=== PATIENT | male | born 1935 | race Caucasian/White ===

== ENCOUNTER 2017-05-29 11:02 | Inpatient (IN) | payer MEDICARE, BC ==
[~2017-05-29] VITALS: Ht 193 cm; Wt 95.0 kg
--- NOTE | ~2017-05-29 | HP ---
PATIENT'S NAME: CESILIA URBINA [facility] AGE: 81 Y [address] ROOM: [place] [address] LOCATION: [facility] ADMIT DATE: 05/29/2017 History & Physical DISCHARGE DATE: FAMILY PHYSICIAN: Roberto Verdugo MD ATTENDING PHYSICIAN: FABIANO REINOSO DATE OF SERVICE: CHIEF COMPLAINT: Left-sided weakness. HISTORY OF PRESENT ILLNESS: An 81-year-old gentleman with a past medical history of TIAs, hypertension, questionable history of coronary artery disease without any intervention, and history of osteoarthritis, as well as rheumatoid arthritis who presented to the emergency department when he noticed left-sided weakness which started about 10:30 a.m. this morning. also noted dysarthria as well as drooping of the left side of the facial corner. On my encounter, he is saying that he is weak on the left side as well as the left leg. He is wearing the brace on the left side which is secondary to surgery for the osteomyelitis in the past. He denied any headache or any trouble with the eyes at this point, but he said he is having trouble speaking. He denied any trouble swallowing. On further inquiry, he denied any dizziness, any chest pain, palpitations, shortness of breath, abdominal pain, burning on urination, constipation, or diarrhea. REVIEW OF SYSTEMS: All other systems reviewed and were negative except what is mentioned in the HPI. ALLERGIES: NO KNOWN DRUG ALLERGIES. PAST MEDICAL HISTORY: Osteoarthritis; rheumatoid arthritis; TIA; history of hypertension; coronary artery disease; and history of osteomyelitis of the left foot, status post surgery, on long-term antibiotics. SOCIAL HISTORY: Quit smoking 20 years ago. FAMILY HISTORY: Reviewed and was unrelated to the current medical problem. MEDICATIONS: Being reconciled right now. PATIENT'S NAME: CESILIA URBINA [facility] AGE: 81 Y [address] ROOM: [place] [address] LOCATION: [facility] ADMIT DATE: 05/29/2017 History & Physical DISCHARGE DATE: FAMILY PHYSICIAN: Roberto Verdugo MD ATTENDING PHYSICIAN: FABIANO REINOSO PHYSICAL EXAMINATION: VITAL SIGNS: Blood pressure 210/100, pulse 62, saturating 95% on room air, and respiratory rate of 16. GENERAL: No acute distress. Alert and oriented x3. HEENT: Head: Atraumatic, normocephalic. Eyes: Nonicteric. No pallor. Oropharynx: Dry mucous membranes. CARDIOVASCULAR: S1 and S2. No murmurs, gallops, or rubs. LUNGS: Clear to auscultation bilaterally. ABDOMEN: Soft, nontender, and nondistended. Bowel sounds present. EXTREMITIES: Left extremity swollen, +2 pitting edema. Right lower extremity: No clubbing, cyanosis, or edema. PSYCHIATRIC: Normal affect, mood, and speech. NEUROLOGIC: Left upper extremity power 0/5, left lower extremity power 0/5. Drooping of the left corner of the face noted. No other gross neurological findings noted. MUSCULOSKELETAL: No muscle tenderness or joint swelling noted. ENDOCRINE: No thyromegaly or myxedema noted. LYMPHATIC: No lymphangitis or lymphadenopathy noted. LABORATORY AND DIAGNOSTIC DATA: CT scan was done in the emergency department which was not significant for any acute intracranial changes. EKG was done which showed sinus bradycardia without any acute ST-T wave changes. Initial lab work including CBC, CMP, and troponin levels were negative for any impressive findings. ASSESSMENT: 1. Acute stroke. 2. History of osteoarthritis. 3. Rheumatoid arthritis. 4. History of transient ischemic attack. 5. Hypertensive urgency. PLAN: We are going to admit this patient to the ICU. Neurology has evaluated the patient, and given the circumstances and high NIH score plus he does not have any contraindication to the thrombolytics, he has been given tPA per Neurology recommendation. He will be admitted to the ICU. After the administration of tPA, we will continue to monitor his neurologic checks every hour to see for any deterioration. MRI and CT of the head and neck angiogram will be ordered. Echocardiography 2D with a bubble study will be done as well. He does have significant swelling of the left side, and we will make sure he does not have any DVT there. He is going to be n.p.o. until bedside swallow testing is done. We are going to follow the post tPA protocol. I had a discussion with the and the patient himself, and he wishes to be full code. We will PATIENT'S NAME: CESILIA URBINA [facility] AGE: 81 Y [address] ROOM: [place] [id number] LOCATION: GICU ADMIT DATE: 05/29/2017 History & Physical DISCHARGE DATE: FAMILY PHYSICIAN: Roberto Verdugo MD ATTENDING PHYSICIAN: FABIANO REINOSO decide about the DVT prophylaxis tomorrow, SCDs for today. FABIANO REINOSO MD ANABELL/modl /[id number] D: [id number] T: [id number] HISTORY & PHYSICAL
--- NOTE | ~2017-05-29 | CON ---
PATIENT'S NAME: CESILIA URBINA [facility] AGE: 81 Y [address] ROOM: [place] [address] LOCATION: GICU ADMIT DATE: 05/29/2017 Consultation DISCHARGE DATE: FAMILY PHYSICIAN: Roberto Verdugo MD ATTENDING PHYSICIAN: FABIANO KAISER REFERRING PHYSICIAN: Graham Pugh MD Consult for Dr. Kaiser. SUBJECTIVE: This pleasant 81-year-old gentleman is referred for rehab/GIRP evaluation, admitted on 05/29/2017, with left-sided weakness, some slurring of speech of sudden onset, however, he does have slurring of speech on and off. He had surgery on his tongue and partial excision per history. However, at this time notices that his slurring was a little bit more. She immediately took him to the hospital and was evaluated and he was within the window of tPA. He is with past history as following: Hypertension, questionable coronary artery disease. Rheumatoid arthritis with weakness, resolved, before of the left side about 2 years ago secondary to TIA. History of partial excision of jaw and tongue on the left side with some slurring. He denied any shortness of breath. No dizziness. No headache. No double vision. He denied any palpitation. No syncope. No abdominal pain. No chills. No burning or micturition at this time. He seems to be comfortable, alert and oriented x3. VITAL SIGNS: Blood pressure 134/66, temperature 98.0, pulse 106, and respiration rate 18. He is 6 feet tall and weighs 94.2 kg. Apart from slight slurring, there is no facial droop at the present time. No visual cut and/or neglect. No double vision. He is at the present time, able to move bilateral upper and lower extremity. Muscle strength throughout is about 4- to 4/5. He has good bowel and bladder control. Deep tendon reflexes present and equal throughout 1+. PATIENT'S NAME: CESILIA URBINA [facility] AGE: 81 Y [address] ROOM: [place] [address] LOCATION: GICU ADMIT DATE: 05/29/2017 Consultation DISCHARGE DATE: FAMILY PHYSICIAN: Roberto Verdugo MD ATTENDING PHYSICIAN: FABIANO KAISER He is on the following medications. 1. Lipitor. 2. Apresoline. 3. Tylenol. 4. NaCl 0.9%. 5. Labetalol. ASSESSMENT AND PLAN: I feel that he is doing well. He should not have any food until speech therapy will evaluate him. Please see the orders. I will start him on PT, OT, and speech and when okayed by the hospitalist, we will continue to do so. I feel that this gentleman has done well. I would advise that he does not drive and/or operate any mechanical device until he is evaluated. I will start him as I mentioned on PT, OT, and speech. He is at risk of falling and should be assisted at all time. I will watch him alongside with you, however, if he is discharged, I would like to see him in 2 weeks in my office. Please see the orders. I did explain everything and answered all the questions to his and himself. They verbalized understanding and agreement. I will be following alongside with you. Thank you for this referral. MD TERESO FOOTE/ahsan /[id number] d: 05/30/17 1216 t: 05/31/17 0834, CONSULTATION REPORT
--- NOTE | ~2017-05-29 | ENPV ---
Vascular Lower Extremities DVT Study Procedure Demographics Patient Name CESILIA URBINA Date of Study 05/29/2017 Patient Number [id number] Gender Male Date of 1935 Age 81 Visit Number [id number] Height Accession Number [id number] Weight Room Number [id number] BSA BMI Referring Interpreting Yosi Romero MD Physician Physician Physician Ordering Awilda Alonzo Title I Director Physician Ug Designer Denny Loyd BS, RT Aisha Hernandez RVT, RDCS Conclusions Summary No evidence of deep vein thrombosis or superficial thrombophlebitis in the left lower extremity . Left calf veins difficult to evaluate. Procedure Type of Study: Veins:Lower Extremities DVT Study, Lower Extremity Left. Indications for Study:Swelling of Limb. Patient Status:Routine. Study Location:Inpatient Portable. Technical Quality:Adequate visualization. Velocities are measured in cm/s ; Diameters are measured in cm Right Lower Extremities DVT Study Measurements Right 2D and Doppler Measurements + + + + +------+------+ + !Location !Visualized!Compressibility!Thrombosis!Signal!Reflux!Reflux ! ! ! ! ! ! ! !(sec) ! + + + + +------+------+ + !GSV Thigh !Yes !Yes !None !Phasic! ! ! + + + + +------+------+ + !Common !Yes !Yes !None !Phasic! ! ! !Femoral ! ! ! ! ! ! ! + + + + +------+------+ + Left Lower Extremities DVT Study Measurements Left 2D and Doppler Measurements + + + + +------+------+ + !Location !Visualized!Compressibility!Thrombosis!Signal!Reflux!Reflux ! ! ! ! ! ! ! !(sec) ! + + + + +------+------+ + !GSV Thigh !Yes !Yes !None !Phasic!No ! ! + + + + +------+------+ + !Common !Yes !Yes !None !Phasic!No ! ! !Femoral ! ! ! ! ! ! ! + + + + +------+------+ + !Prox !Yes !Yes !None !Phasic!No ! ! !Femoral ! ! ! ! ! ! ! + + + + +------+------+ + !Mid Femoral!Yes !Yes !None !Phasic!No ! ! + + + + +------+------+ + !Dist !Yes !Yes !None !Phasic!No ! ! !Femoral ! ! ! ! ! ! ! + + + + +------+------+ + !Popliteal !Yes !Yes !None !Phasic!No ! ! + + + + +------+------+ + !Gastroc !Yes !Yes !None !Phasic!No ! ! + + + + +------+------+ + !PTV !Yes !Yes !None !Phasic!No ! ! + + + + +------+------+ + !Peroneal !Yes !Yes !None !Phasic!No ! ! + + + + +------+------+ + Signature dtt: cheryl: 05/29/17 1551 Physician Self Edit
--- NOTE | ~2017-05-29 | DS ---
PATIENT'S NAME: CESILIA URBINA [facility] AGE: 81 Y [address] ROOM: [id number] [place] [id number] LOCATION: GICU ADMIT DATE: 05/29/2017 Discharge Summary DISCHARGE DATE: 06/02/2017 FAMILY PHYSICIAN: Roberto Verdugo MD ATTENDING PHYSICIAN: Eddie Kaiser Discharged to [facility] Inpatient Rehab. REASON FOR ADMISSION: Facial droop. ADMISSION PRINCIPAL DIAGNOSIS: Multifocal right-sided ischemic cerebrovascular accident. SECONDARY DIAGNOSES: 1. Rheumatoid arthritis, on prednisone. 2. Essential hypertension. 3. Acute hypoxic respiratory failure with mild oxygen requirements. 4. BPH. 5. History of frequent transient ischemic attacks. 6. Questionable history of coronary artery disease. No prior intervention. 7. History of osteoarthritis. 8. History of osteomyelitis requiring fusion of left ankle with chronic brace. PENDING LABS AND TESTS AT TIME OF DISCHARGE: Will include a 30-day cardiac event monitor to rule out atrial fibrillation as contributing to stroke. HOSPITAL COURSE: This is a very pleasant 81-year-old male with history as noted above who presented after developing sudden onset worsening of baseline mild facial droop on the left as well as worsening dysarthria and flaccid left arm and leg. 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 Upon initial arrival, CT scan did not show acute bleed and patient was felt to be a good candidate for tPA which was given approximately an hour and 5 minutes after initiation of symptoms. The next day, patient had regained all of his strength and had returned to baseline degree of deficits with regard to dysarthria. MRI subsequently performed did show small areas of scattered restricted diffusion in the right subcortical regions as well as an area of high cortical involvement. Due to these results, a cardioembolic source was felt highly likely. The patient was evaluated during his stay on telemetry without any significant rhythm events. Lower extremity Doppler was negative for DVT. CT angiography showed an unremarkable [place] of [place] as well as mild to moderate stenosis involving proximal left internal carotid measuring 30% to 40%. During the subsequent hospital stay, the patient did well, largely an uneventful stay though he did require 1 to 2 L of oxygen PATIENT'S NAME: CESILIA URBINA [facility] AGE: 81 Y [address] ROOM: [id number] [place], [place] [address] LOCATION: GICU ADMIT DATE: 05/29/2017 Discharge Summary DISCHARGE DATE: 06/02/2017 FAMILY PHYSICIAN: Roberto Verdugo MD ATTENDING PHYSICIAN: Eddie Kaiser which was new from prior baseline. No evidence of infectious etiology nor volume overload was appreciated on imaging or on exam. This will be maintained upon discharge and can be weaned as activity tolerates to maintain saturations greater than 90. The patient will also be discharged with a 30- day cardiac event monitor as there were no evidence of atrial fibrillation during his 4-day stay; however, distribution of stroke does favor cardioembolic source. CONSULTANTS: Neurology, Dr. Pugh. MEDICATIONS AND PERTINENT CHANGES: The patient did have amlodipine 10 mg started during the stay for hypertension though this was borderline low following 48 hours after tPA. So, this was occasionally held. Also, was started on high-intensity statin. CONDITION: Last vital signs just prior to discharge: Temp 98, pulse 85 in sinus, respirations 16, blood pressure 132/76, saturating 91% on 2 L. For exam date of discharge, please see progress note. DISPOSITION: The patient was instructed on a mechanical soft diet per Speech Therapy recommendations upon discharge. ACTIVITY: To be as tolerated. FOLLOWUP: Will have follow up regarding his cardiac event monitor and with PCP following [facility] discharge especially if ongoing oxygen is required. Time spent on date of discharge including direct patient care and coordination of discharge activities was 40 minutes. MD GREGORIO ROME/modl /[id number] d: 06/03/17 0203 t: 06/03/17 1533, DISCHARGE SUMMARY
--- NOTE | ~2017-05-29 | CON ---
PATIENT'S NAME: CESILIA URBINA [facility] AGE: 81 Y [address] ROOM: [id number] [place], [place] [address] LOCATION: GICU ADMIT DATE: 05/29/2017 Consultation DISCHARGE DATE: FAMILY PHYSICIAN: Roberto Verdugo MD ATTENDING PHYSICIAN: FABIANO KAISER DATE OF CONSULTATION: 05/29/2017 REFERRING PHYSICIAN: Graham Pugh MD CHIEF COMPLAINT: The patient was seen in neurologic consultation on 05/29/2017 and followed up on 05/31/2017. HISTORY OF PRESENT ILLNESS: Mr. Urbina is an 81-year-old male patient who at 10:30 a.m. according to his developed sudden onset of worsening of his baseline mild facial droop to have extreme on his left as well as having much more slurring of his speech. He was also flaccid on his left arm and left leg. Upon his arrival into the emergency room, a stroke code was called and he was assessed by Dr. Adrianna Fischer for an NIH stroke scale and after a CAT scan of the brain, which was not showing any acute stroke or bleed, I evaluated the patient and agreed the patient would be an active candidate for tPA. He just received tPA at approximately 11:35. During the course of the day, the patient did very well. He had progressive improvement of his power in the left upper extremity as well as the left lower extremity. By the morning of the next day, the patient showed full power return to his left side, also his facial droop had resolved and he was not talking with any significant slur. At no time did the patient have any cortical neglect of his right hemibody, he identified the right and left discrimination, 2-point discrimination was always intact. He had no problems with language, answered questions, and followed all commands properly. An MRI was performed on the day after the patient received tPA and there was evidence of diffusion-weighted imaging findings for small areas of scattered restriction diffusion in the right subcortical regions of the brain as well as the one area that was a bit high cortical. I discussed with the patient that the process of this stroke may likely be related to atrial fibrillation. Thus his stay here would require a close monitoring of his rhythm to look for any evidence of atrial arrhythmia. During the course of his stay here on 05/31, he was doing very well. He is walking around and felt well. His family members were present. They were happy with the return to his baseline motor power. It is difficult to see if the patient had any junctional rhythm or atrial arrhythmia, but constantly, I was checking with telemetry and appears he has remained in normal sinus rhythm. PRIOR MEDICAL HISTORY: History of hypertension, coronary artery disease, history also of rheumatoid PATIENT'S NAME: CESILIA URBINA [facility] AGE: 81 Y [address] ROOM: [id number] [place], [place] [address] LOCATION: [facility] ADMIT DATE: 05/29/2017 Consultation DISCHARGE DATE: FAMILY PHYSICIAN: Roberto Verdugo MD ATTENDING PHYSICIAN: FABIANO KAISER arthritis, possible TIA involving his left side about 2 years ago. History of osteomyelitis of the left foot status post surgery on the foot. 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 He has some very mild slurring from the surgery. He did come in with a left foot brace. SOCIAL HISTORY: He is for greater than 45 years. He does not smoke presently, but smoked 20 years ago. He does not drink any alcohol. FAMILY HISTORY: Reviewed with the patient, but not significant in this patient's case. REVIEW OF SYSTEMS: The patient is doing very well. He has full resumption of his motor power. He presented with acute stroke symptoms on 05/30/2017 and received tPA promptly in the emergency room. He made an excellent recovery with the use of the tPA and expectedly there was evidence for some stroke findings with diffusion- weighted imaging showing some prolongation in the right hemisphere. This appeared to be some scattered emboli type foci in the subcortical regions of the brain and even one into the high cortical region possibly consistent with embolic stroke. He denies any chest pain or shortness of breath. He feels well. He has no headache. He has no problems with speech or language. Rest of review of systems is within normal limits. PHYSICAL EXAMINATION: GENERAL: The patient is alert and oriented. Multiple family members in the room. They are speaking to them and is having a general good time. VITAL SIGNS: Show a pulse of 68 to 78 and regular. No evidence of irregularly irregular rhythm. Occasionally, he has an extra beat that seems to fall on the T-wave. The QRS complex does seem to be followed by T wave. P waves appear to be wide consistent with P mitrale. Pressure 180/95, and temperature is afebrile. CRANIAL NERVES: Pupils are equal and reactive to light and accommodation. Extraocular muscles intact. There is a subtle facial droop on the left. This is a result of the patient's prior surgery of the face due to cancer. There is normal facial sensation V1 through V3. Neck is supple on flexion and extension. Left upper extremity power is now grade 5/5, symmetric to the right. Rapid alternating hand movements are normal. He displays no evidence of any pronator drift. Mjpgyo-jz-mmbz testing is normal. His left lower extremity power: He gives me 4+/5 power on dorsiflexion of the foot, but this is likely due to weakness from a prior foot injury. Normal sensation to light touch. No PATIENT'S NAME: CESILIA URBINA [facility] AGE: 81 Y [address] ROOM: [place] [address] LOCATION: [facility] ADMIT DATE: 05/29/2017 Consultation DISCHARGE DATE: FAMILY PHYSICIAN: Roberto Verdugo MD ATTENDING PHYSICIAN: FABIANO KAISER cortical neglect. The patient is able to stand up with normal base stance. His gait is normal narrow base. Negative Romberg. IMPRESSION: The patient received tPA on 05/30/2017 in association with him coming in with a dense left hemiparesis. He was found to have a small area of stroke in the subcortical and high cortical regions of his brain, but the sequela of this stroke is really resolved. It is likely due to the clot busting effect of tPA and some residual prolongation on DWI that is often seen even if the patient has made a full recovery. We will look very closely for any evidence of atrial arrhythmia. This type of presentation of multi areas of prolongation is often seen in cardioembolic strokes. He does have what appears to be P mitrale, possibly left atrial enlargement, set him up for more of a risk for atrial fibrillation; however, he does show normal sinus rhythm. Therefore, he should have a cardiac event monitor after discharge for least 1 month to rule out any evidence of paroxysmal atrial fibrillation. For now, the patient will not be placed on anticoagulation as any evidence for atrial fibrillation is lacking presently. Aspirin as well as Lipitor has been started on this patient. He would likely receive physical therapy, possibly as an outpatient basis to return to this hospital during the course of the week. Case has been discussed fully with Dr. Kaiser. MD BLESSING LOPEZ/ahsan /[id number] d: 06/01/172 t: 06/30/17 1552, CONSULTATION REPORT
--- NOTE | ~2017-05-29 | ECHO ---
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 The estimated left ventricular ejection fraction is 50-55%% with normal WM and internal dimension. Moderate to severe concentric left ventricular hypertrophy. The aortic valve is mildly sclerotic. Trivial tricuspid regurgitation by color Doppler. Procedure Type of Study TTE procedure:2D Echocardiogram. Procedure Date Date: 05/30/2017 Start: 11:37 AM Study Location: Inpatient Portable Technical Quality: Limited visualization due to patient immobility. Indications:CVA. Appropriate Use Criteria: 9 Patient Status: Routine HR: 89 bpm BP: 173/96 mmHg M-Mode/2D Measurements LV Diastolic Dimension: 5.02 cm LV Systolic Dimension: 4.38 cm LV Septum Diastolic: 1.49 cm LV PW Diastolic: 1.73 cm AO Root Dimension: 3.1 cm Cardiac Output: 3.08 l/min AV Cusp Separation: 2.1 cm LA Dimension: 2.7 cm LVOT: 2.1 cm LVOT VTI: 10 cm TAPSE: 2.46 cm LV Stroke volume: 34.62 ml TDI-S': 15 cm/s Doppler Measurements AV Peak Velocity: 0.84 m/s MV Peak E-Wave: 1 m/s AV Peak Gradient: 2.79 mmHg AV Mean Gradient: 1 mmHg MV P1/2t: 31 msec LVOT Peak Velocity: 0.79 m/s TR Velocity:0.92 m/s PV Peak Velocity: 1.11 m/s TR Gradient:3.39 mmHg PV Peak Gradient: 4.93 mmHg Estimated RAP:10 mmHg Estimated PASP: 13.39 mmHg Estimated RVSP: 13 mmHg A' Septal Velocity: 0.15 m/s E' Septal Velocity: 0.06 m/s A' Lateral Velocity: 0.11 m/s E' Lateral Velocity: 0.07 m/s Findings Left Ventricle Moderate to severe concentric left ventricular hypertrophy with normal internal dimension,EF and WM. Right Ventricle Normal right ventricle structure and function. Left Atrium Normal left atrial size. Right Atrium Normal right atrial size. Mitral Valve Normal mitral valve structure and function. Aortic Valve The aortic valve is mildly sclerotic. Tricuspid Valve Trivial tricuspid regurgitation by color Doppler. Pulmonic Valve Normal pulmonic valve structure and function. Pericardial Effusion No evidence of pericardial effusion. Miscellaneous Visualized portions of the aortic root and ascending aorta appear normal in size. Pleural Effusion No evidence of pleural effusion. Contractility Score LV regional wall motion:(0-Non visualized 1-Normal 2-Hypokinesis 3-Akinesis 4-Dyskinesis 5-Aneurysm) Signature dtt: Marcy Cazares dtd: 05/30/17 1137 Physician Self Edit
--- NOTE | ~2017-05-29 | ER ---
PATIENT'S NAME: CESILIA URBINA [facility] AGE: 81 Y [address] ROOM: [address] [address] LOCATION: [facility] ADMIT DATE: 05/29/2017 ER/Outpatient Report DISCHARGE DATE: FAMILY PHYSICIAN: Roberto Verdugo MD ATTENDING PHYSICIAN: FABIANO KAISER Time of Arrival: 1102 hours. Time of Evaluation/Seen: 1102 hours. IDENTIFICATION: An 81-year-old male. CHIEF COMPLAINT: Stroke alert. HISTORY OF PRESENT ILLNESS: The patient is an 81-year-old male who was last seen normal at 1035 hours by his . She went out to the [facility] and found him with a flaccid left side. He has had a prior head and neck cancer with removal of the left mandible and part of the left tongue, so he does have some facial deformity on that side and that is unchanged, although it looks like a droop, his said that is unchanged. On arrival here, the patient said his left arm would not work. He has no headache, and he has no other complaints. PAST MEDICAL HISTORY: ALLERGIES: NO KNOWN DRUG ALLERGIES. CURRENT MEDICATIONS: 1. DuoNeb. 2. Flomax 0.4 mg at bedtime. 3. Tramadol 50 mg b.i.d. 4. Arava 20 mg daily. 5. Prednisone 5 mg q.a.m. 6. Vitamin D 1000 units daily. 7. Aspirin 325 mg daily. 8. Multivitamin daily. MEDICAL PROBLEMS: 1. Rheumatoid arthritis, followed by Dr. Ceron. 2. Head and neck cancer in 2012. 3. 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 Voss. PATIENT'S NAME: CESILIA URBINA [facility] AGE: 81 Y [address] ROOM: [address] [address] LOCATION: [facility] ADMIT DATE: 05/29/2017 ER/Outpatient Report DISCHARGE DATE: FAMILY PHYSICIAN: Roberto Verdugo MD ATTENDING PHYSICIAN: FABIANO KAISER 4. TIA x2. 5. COPD. PAST SURGICAL HISTORY: Surgeries: 1. Head and neck surgery with partial removal of the tongue and mandible. 2. Back surgery. 3. Left ankle surgery. 4. Tonsillectomy. 5. Bilateral cataract repair. 6. Thoracentesis. 7. Colonoscopy. 8. Lower palate resection. SOCIAL HISTORY: The patient is , lives at home here in [place]. 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 Tobacco use, quit 20 years ago. Alcohol use, denies. Drug use, denies. REVIEW OF SYSTEMS: All systems reviewed and negative other than what is noted in the HPI. PHYSICAL EXAMINATION: VITAL SIGNS: Height 6 feet 4 inches, weight 94.8 kg. Blood pressure 229/120, pulse 78, respiratory rate 16, temperature 96.4, and sats 98% on 2 L. GENERAL: An 81-year-old male in no acute distress. HEENT: Head; normocephalic. Ears; TMs translucent in both ears. Eyes; pupils equal and reactive to light and accommodation. Extraocular movements intact. Nose; mucosa pink. No lesions. Mouth; he has deformity of the left side of his face and mouth from previous surgeries. Oropharynx, benign. NECK: Supple. No lymphadenopathy. No carotid bruits. LUNGS: Clear to auscultation. Breath sounds are equal. No rhonchi, wheezes, or rales. HEART: Regular rate and rhythm. No murmur, rub, or gallop. ABDOMEN: Bowel sounds present. Soft, nondistended. No hepatosplenomegaly. No palpable masses. Nontender. SKIN: Yancey, warm, and dry. No lesions or rashes noted. NEUROLOGIC: The patient is alert and oriented x4. Cranial nerves 2 through 12 grossly intact with the exception of he does have drooping of the left face which is not new today. Motor strength; right upper extremity 5/5, right lower extremity 4/5, left lower extremity 0/5, and left upper extremity 0/5. Trace of lower extremity edema left greater than right. He has a brace on his left lower extremity. Sensation is intact to light touch throughout. NIH Stroke Scale score is 8 and a copy has been included on the chart with which the stroke alert orders. PATIENT'S NAME: CESILIA URBINA [facility] AGE: 81 Y [address] ROOM: [place] [address] LOCATION: [facility] ADMIT DATE: 05/29/2017 ER/Outpatient Report DISCHARGE DATE: FAMILY PHYSICIAN: Roberto Verdugo MD ATTENDING PHYSICIAN: FABIANO KAISER EMERGENCY DEPARTMENT COURSE: The patient was immediately evaluated, found to be stable, taken emergently over to head CT. Head CT; no acute findings per Radiology. EKG; normal sinus rhythm at 70 beats per minute. No acute ST elevation or depression. Troponin I is less than 0.040. Hemoglobin 15.1, hematocrit 44.2, platelets 205,000, and white count 9.3 with a normal differential. INR 1.01. Sodium 141, potassium 4.1, chloride 105, CO2 of 29, BUN 13, creatinine 0.9, and blood sugar 125. Accu-Chek was 119 per EMS, and 123 here. The patient's recheck of blood pressure remained elevated, greater than 200/100, and he was given labetalol 10 mg IV over 2 minutes. His blood pressure did improve. Dr. Cervantes, neurologist evaluated the patient as part of the stroke alert and it was recommended for him to proceed with tPA. Dr. Cervantes discussed the risks and benefits with both the patient and his . They did agree to proceed. TPA was initiated per protocol in the emergency room. Recheck of the patient's neurological status, he did have progressive improvement and return of function of his left upper extremity and left lower extremity. He remained hemodynamically stable throughout his stay here in the emergency room. Blood pressure was 170/95 when he was transferred to ICU. IMPRESSION: 1. Acute right-sided cerebrovascular accident with left-sided weakness. Stroke alert called, tPA in the emergency room. Improvement of patient condition. 2. Hypertension. Labetalol given in the emergency room. 3. Rheumatoid arthritis, on chronic low-dose prednisone. The patient was evaluated by both, Dr. Kaiser, hospitalist and Dr. Cervantes in the emergency room. The patient arrived to the emergency room at 11:02 a.m. and was taken to ICU at 1345 hours. 40 minutes of critical care time was provided with direct contact with the patient, his , EMS, Radiology, Neurology, and the hospitalist. LOUIS BRICENO MD CAR/modl /[id number] d: 05/29/170 t: 05/30/17 1244, OUTPATIENT REPORT
[2017-05-29 11:34] LABS: BASOPHIL % 0.4 %; EOSINOPHIL # 0.2 K/uL (0.0-0.5); EOSINOPHIL % 2.3 %; HEMATOCRIT 44.2 % (33.0-50.0); HEMOGLOBIN 15.1 g/dL (11.0-16.0); IMMATURE GRANULOCYTE # 0.1 K/uL (0.0-0.3); IMMATURE GRANULOCYTE % 0.9 %; LYMPHOCYTE # 1.5 K/uL (0.8-4.0); LYMPHOCYTE % 15.7 %; MCH 30.8 pg (27.0-34.0); MCHC 34.2 gm/dL (32.0-36.5); MCV 90.2 fl (83.0-98.0); MONOCYTE # 0.7 K/uL (0.0-1.0); MONOCYTE % 7.6 %; MPV 9.8 fl (9.4-12.4); NEUTROPHIL # (ANC) 6.8 K/uL (1.4-9.0); NEUTROPHIL % 73.1 %; NRBC % 0 /100WBC (0-0.00); PLATELET COUNT 205 K/uL (150-450); RDW-CV 12.9 % (11.9-14.6); WBC 9.3 K/uL (4.0-11.0)
[2017-05-29 11:40] LABS: INR - (THERAPEUTIC) 1.01 (0.92-1.07); PROTIME 10.6 SECONDS (9.8-11.4); PTT 26 SECONDS (25-32)
[2017-05-29 11:45] LABS: ALBUMIN 3.7 gm/dL (3.5-5.0); ANION GAP 11.1 (10.0-19.0); CALCIUM 8.9 mg/dL (8.5-10.5); CREATININE 0.9 mg/dL (0.6-1.3); PHOSPHORUS 1.8 mg/dL (2.5-4.9); POTASSIUM 4.1 mMol/L (3.7-5.1)
[2017-05-29] MEDS ORDERED: DUONEB INH (16:29)
[2017-05-29] MEDS ORDERED: FLOMAX0.4 MG PO (16:29)
[2017-05-29] MEDS ORDERED: ULTRAM50 MG PO (16:30)
[2017-05-29] MEDS ORDERED: ARAVA20 MG PO (16:30)
[2017-05-29] MEDS ORDERED: DELTASONE5 MG PO (16:31)
[2017-05-29] MEDS ORDERED: VITAMIN D1000 UNI1 PO (16:34)
[2017-05-29] MEDS ORDERED: ASPIRIN325 MG PO (16:35)
[2017-05-29] MEDS ORDERED: THERAGRAN-M1 TAB PO (16:36)
--- NOTE | 2017-05-29 17:31 | NUR ---
SIGNIFICANT EVENT: PATIENT ALERT, ORIENTED X3. PUPILS EQUAL AND REACTIVE. MOVES ALL 4 EXTREMITIES SPONTANEOUSLY AND TO COMMANDS. R) SIDE SLIGHTLY STRONGER THAN L). STROKE SCALE OF 2. CONVERSATIONALLY IS APPROPRIATE, SLIGHT DROOPING OF L) SIDE OF MOUTH. SPEECH IS SLOW. tPA BOLUS AND IV GTT GIVEN IN ER. NEURO CHECKS EVERY HALF HOUR. PATIENT HAS BEEN I NSINUS RHYTHM, HR 60S. PULSES PALPABLE THROUGHOUT. EDEMA PRESENT. LABETALOL AND HYDRALAZINE AVAILABLE TO KEEP SBP <180. AFEBRILE. PATIENT WEANED TO 2L OF OXYGEN VIA NASAL CANNULA TO KEEP SATS <94. BOWEL SOUNDS PRESENT, NO BM TODAY. ADEQUATE URINE OUTPUT, VOIDS PER URINAL. BEDREST, REPOSITIONED EVERY 2 HOURS. NO NEW SKIN ISSUES. 1 PIV, NO COMPLICATIONS, INFUSING NS AT 75ML/HR. FOLLOW UP: DAPHNE DEL CID
--- NOTE | 2017-05-30 04:15 | NUR ---
Significant Event: Patient is alert and oriented x3. NIHSS 3. Patient has decreased sensation on left side with slow speech and slight facial droop. PRN hydralazine given x2 for hypertension. SPB 120s-200s. Lung sounds clear and dim. 3L NC. Afebrile. Denies pain or headache. NPO with sips of water with meds. Adequate UOP. NS @ 75ml/hr. No BM. Small amount of emesis x1. Bedrest until 24 hours after TPA. Follow up: MRI, continue to monitor neurological status
[2017-05-30 09:43] LABS: CREATININE 0.7 mg/dL (0.6-1.3)
--- NOTE | 2017-05-30 10:10 | NUR ---
CONSULT RECEIVED PER ROUTINE STROKE ORDERS. IF APPROPRIATE, DIET EDUCATION WILL BE COMPLETED PRIOR TO DISMISSAL.
--- NOTE | 2017-05-30 15:10 | NUR ---
Physical Therapy received Orders to begin 24 hr after TPA. Spoke with nurse and was informed patient received TPA at 1130, however he was scheduled for MRI at to plan to see patient after 1230. Returned at 1:30 and patient was not back yet. Returned at 2:00 and patient had just returned to room and was sleeping. requested PT come tomorrow.
--- NOTE | 2017-05-30 19:50 | NUR ---
Significant Event: NIHSS=2 for slurred speech and left mouth droop. chronic dullness throughout from arthritis. continues on 3 liters of oxygen. takes meds whole. pureed diet with thin liquids. repositioned side to side with lift sheet and pillows. tele- NSR. MRI and CT this aftn. PRN hydralazine x 2 for SBP greater than 180. Changed from ICU status to NTU status.
--- NOTE | 2017-05-31 03:51 | NUR ---
Significant Event: Patient alert and oriented. Denies pain. NIHSS=2. states speech is per baseline. Denies abnormal sensation. Left hand grasp continues to be slightly weaker than right. IV fluids continue. Pleasant and cooperative with cares. Follow up: continue to monitor
--- NOTE | 2017-05-31 14:12 | NUR ---
Significant Event: a/o x 3. pain is chronic and generalized from stated arthritis. scheduled tramadol for pain management. NIHSS=2 for left mouth droop and muffled speech. Tele- NSR. Patient does not wear oxygen at home- goal to wean to room air. on 3 liters oxygen with first assessment and decreased to 2 liters with third. occasional moist cough. IVF discontinued. IV to right AC and right upper forearm both saline locked. takes meds whole. pureed diet. ambulates with walker/gait belt and one assist. Has brace he wears in left shoe. BM last night. voids per urinal without difficulty. CTA done this shift. EKG done this shift. Goal to keep SBP less than 180. IV lasix administered this shift. Plan- GIRP vs home when ready.
--- NOTE | 2017-06-01 04:03 | NUR ---
Significant Event: Patient alert and oriented. Up with 1 assist. Denies pain. VSS on 2L oxygen. NIHSS=2. Rested throughout shift. Pleasant and cooperative with cares. Follow up: GIRP VS HOME.
--- NOTE | 2017-06-01 11:56 | NUR ---
Introduced self and role of care management to patient. He lives in [place] with his . He states that he is normally able to do all his own ADL's. He states that his does assist if needed. We discussed discharge plans. I explained that I had spoken with Nita with PT and she felt he would really benefit from a short stay on our inpatient rehab floor. He is in agreement to "give it a try". I called and spoke with Catarina HAYES on [facility] and they may have a bed available as early as Sunday 06/03. Will continue to follow.
--- NOTE | 2017-06-01 16:43 | NUR ---
Significant Event: Follow up: Awake alert and oriented x 3, Up with 1 assist, gaitbelt, and walker. Held Norvasc this am due to hypotension. Perameters implemented. IVs in Righ AC, Right UE. SL. Pureed diet. Takes one pill at a time. Voids per urinal. Generalized weakness bilaterally. SOB with activity. O2 sats remained about 90 this shift. Pleasant and cooperative. Plan is to go to inpatient rehab thursday.
--- NOTE | 2017-06-02 04:25 | NUR ---
pt alert and oriented, 2 liters/NC, strong hand grasp bilaterally. HX of facial droop d/t jaw reconstruction. 2 liters/NC
--- NOTE | 2017-06-02 13:38 | NUR ---
Significant Event: VSS. PATIENT A/O X 3. FOLLOWS COMMANDS. CHRONIC N/T TO HANDS AND FEET. LEFT FACIAL DROOP FROM PREVIOUS JAW INJURY. PUPILS 2MM, BRISK. 1+EDEMA TO LOWER EXTREM. LUNGS CLEAR AND DIM ON ROOM AIR. IV IN RT UPPER ARM AND RT A/C SALINE LOCKED. UP WITH 1 ASSIST AND WALKER. PUREED DIET, BUT SPEECH PLANNING TO GET ORDER TO ADVANCE TO [facility]. TAKES PILLS ONE AT A TIME. ALARMS ON FOR SAFETY. STROKE INFO GIVEN TO PATIENT TODAY. PLAN TO GO TO [facility] AT 9AM TMRW. Follow up: [facility] TMRW.
--- NOTE | 2017-06-02 14:33 | NUR ---
PATIENT A/O X 3. FOLLOWS COMMANDS. MODERATE STRENGTH. CHRONIC N/T TO EXTREMITIES. SLURRED SPEECH, NORMAL FOR PATIENT. FACIAL DROOP ALSO FROM PREVIOUS PROCEDURE. PUPILS 2MM, BRISK. 1+EDEMA TO LOWER EXTREMITIES. LUNGS CLEAR AND DIM ON 2 LITERS AT HOME. DENIES PAIN THIS SHIFT. UP 1 ASSIST AND WALKER. PUREED DIET, NOW UPGRADED TO [facility] SO[facility]. PLAN TO TRANSFER TO [facility] TODAY.
--- NOTE | 2017-06-02 15:05 | NUR ---
Received a call from Catarina HAYES on [facility]. They can accept patient for admission on 06/03 at 9am. Orders on chart, packet at desk. Patient updated. Dr Richey updated.
== END 2017-06-02 16:00 | DRG 61 ==
LOC: GMED 11:02 → GICU 12:14
PROVIDERS: Family Medicine; ADMIT Internal Medicine
DX: I63.9 Cerebral infarction, unspecified (principal); J96.01 Acute respiratory failure with hypoxia; G81.04 Flaccid hemiplegia affecting left nondominant side; I10 Essential (primary) hypertension; I16.0 Hypertensive urgency; M06.9 Rheumatoid arthritis, unspecified; R47.1 Dysarthria and anarthria; R29.810 Facial weakness; N40.0 Benign prostatic hyperplasia without lower urinary tract symptoms; M19.90 Unspecified osteoarthritis, unspecified site; I65.22 Occlusion and stenosis of left carotid artery; I25.10 Atherosclerotic heart disease of native coronary artery without angina pectoris; Z87.891 Personal history of nicotine dependence; Z98.1 Arthrodesis status; Z86.73 Personal history of transient ischemic attack (TIA), and cerebral infarction without residual deficits; Z79.82 Long term (current) use of aspirin; Z79.52 Long term (current) use of systemic steroids
CPT/HCPCS: A9577; J0360; J1940; J2997; J7030; J7040; J7512; Q9967

== ENCOUNTER → 2017-05-29 | Outpatient (CLI) | payer MEDICARE, BC ==
[~2017-05-29] MED LIST: ARAVA20 MG PO; ASPIRIN325 MG PO; DELTASONE5 MG PO; DUONEB INH; FLOMAX0.4 MG PO; FLONASE 50 MCG/16 GM NOSE; LIPITOR80 MG PO; MILK OF MA400 MG/5 M PO; NORVASC10 MG PO; THERAGRAN-M1 TAB PO; ULTRAM50 MG PO; VITAMIN D1000 UNI1 PO
== END | disposition disaster alternative care site (69) ==
LOC: GAMB 10:46
DX: I63.9 Cerebral infarction, unspecified (principal); G81.94 Hemiplegia, unspecified affecting left nondominant side; R29.810 Facial weakness; R53.1 Weakness; Z79.52 Long term (current) use of systemic steroids; Z85.830 Personal history of malignant neoplasm of bone
CPT/HCPCS: A0425; A0427

== ENCOUNTER 2017-06-02 16:04 | Inpatient (IN) | payer MEDICARE, BC ==
[~2017-06-02] VITALS: Ht 193 cm; Wt 93.0 kg
--- NOTE | ~2017-06-02 | HP ---
PATIENT'S NAME: CESILIA URBINA [facility] AGE: 81 Y [address] ROOM: [place] [address] LOCATION: [facility] ADMIT DATE: 06/02/2017 History & Physical DISCHARGE DATE: FAMILY PHYSICIAN: Roberto Verdugo MD ATTENDING PHYSICIAN: Graham Pugh DATE OF SERVICE: HISTORY OF PRESENT ILLNESS: This 81-year-old gentleman is admitted to Rehab Unit at [facility] on 06/02/2017. 1. He is admitted with unstable gait. 2. Dependent in activities of daily and self-care. 3. Status post recent left side weakness secondary to CVA with unstable gait, exaggerated. 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 He has a dropped foot on the left side and wears the double upright on the left side, and he is comfortable with it at the present time. He is alert, oriented. Vitals: Blood pressure 132/76, temperature 98.0, pulse 85, and respiration rate 16. He is 6 feet tall and weighs 95.0 kg. ALLERGIES: NO REPORTED DRUG ALLERGIES. MEDICATIONS: He is on the following medications: 1. Aspirin 325 mg p.o. daily. 2. Norvasc 10 mg p.o. daily. 3. Lipitor 80 mg p.o. daily. 4. Flonase 50 mcg nasal spray twice daily. 5. Arava 20 mg every day. 6. Theragran-M 1 tablet p.o. daily. 7. Prednisone or Deltasone 5 mg in the morning. 8. Flonase 0.4 mg p.o. every night at bedtime. 9. Ultram 50 mg p.o. twice daily. 10. Albuterol twice per day inhalation. 11. Vitamin D 1000 units p.o. daily. PAST MEDICAL HISTORY: Past history of significance as follows: PATIENT'S NAME: CESILIA URBINA [facility] AGE: 81 Y [address] ROOM: [place] [address] LOCATION: [facility] ADMIT DATE: 06/02/2017 History & Physical DISCHARGE DATE: FAMILY PHYSICIAN: Roberto Verdugo MD ATTENDING PHYSICIAN: Graham Pugh 1. History of left leg infection when he was a youngster, on antibiotics for an extended period of time followed by surgery, exact procedure unknown. 2. Resection of the left part of the tongue secondary to a mass, details unknown. 3. 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 4. Coronary artery disease. 5. Left-sided weakness recent and trouble speaking a little bit. 6. Rheumatoid arthritis. 7. Dyslipidemia. 8. Hypertension. 9. Asthma. At the present time, he is able to walk short distances with handheld; however, we are working on long distances. Because of his tongue, he is on mechanical soft diet. His UA was within normal limits. CBC: White BC 8.7, RBC 4.20, hemoglobin 12.7, hematocrit 37.8, and platelets 187. CMS: Sodium 141, potassium 3.5, chloride 106, CO2 of 31, BUN 19, creatinine 0.7, and glucose 94. Prealbumin will be sent in the a.m., was not picked up on the admission note. ASSESSMENT AND PLAN: At the present time, we will put on intensive PT, OT, and speech 3 hours per day, 15 hours per week for the coming about 2 weeks, aiming to discharge home on modified independence. We will keep on neurologist and hospitalist census to follow as necessary. All the above was explained to him. He verbalized understanding and agreement with plan of care. MD TERESO FOOTE/ahsan /[id number] D: [id number] T: [id number] HISTORY & PHYSICAL
--- NOTE | ~2017-06-02 | DS ---
PATIENT'S NAME: CESILIA URBINA [facility] AGE: 81 Y [address] ROOM: [place] [address] LOCATION: [facility] ADMIT DATE: 06/02/2017 Discharge Summary DISCHARGE DATE: FAMILY PHYSICIAN: Roberto Verdugo MD ATTENDING PHYSICIAN: Marla Pugh This 81-year-old gentleman was admitted to Rehab Unit at [facility] [place], [place] on 06/02/2017, is to be discharged on 06/07/2017. 1. Unstable gait. 2. Dependent activities of daily self-care. 3. Left hemiplegia, secondary to ischemic stroke. He is doing well at the present time, alert, oriented x3, feels well. VITAL SIGNS: Blood pressure 128/88, temperature 97.8, pulse 84, and respiratory rate 14. He is at the present time with a potassium of 2.6. He can ambulate 200 feet at modified independent level with ankle-foot orthosis on the old weak left foot. He is at the present time on the following medications: 1. Norvasc 10 mg p.o. daily. 2. Aspirin 325 mg p.o. daily. 3. Lipitor 80 mg p.o. daily. 4. Vitamin D 1000 units daily. 5. Flonase 50 mcg nasal spray twice daily. 6. Arava 20 mg p.o. daily. 7. Theragran-M 1 tablet p.o. daily. 8. Deltasone 5 mg in the morning. 9. Flomax 0.4 mg at night. 10. Ultram 50 mg p.o. twice daily as needed. 11. Albuterol 0.5 mg in 3 mL twice daily each nostril. 12. MOM 30 mL as needed. He is at the present time to have outpatient PT/OT twice per week for the coming 4 weeks and I will see him thereafter. He must follow with his family physician as soon as possible. He should not drive and/or operate any mechanical device until he is reevaluated. He has a note for cardiac monitoring upon discharge and nursing will follow. FINAL DIAGNOSES: PATIENT'S NAME: CESILIA URBINA [facility] AGE: 81 Y [address] ROOM: [address] [address] LOCATION: [facility] ADMIT DATE: 06/02/2017 Discharge Summary DISCHARGE DATE: FAMILY PHYSICIAN: Roberto Verdugo MD ATTENDING PHYSICIAN: Marla Pugh 1. Unstable gait. 2. Dependent activities of daily self-care. 3. Left hemiplegia, secondary to cerebrovascular accident, improving. 4. Coronary artery disease, stable per history. 5. Hypertension. 6. Dyslipidemia. 7. Benign prostatic hypertrophy. 8. Osteoporosis. 9. Allergic rhinitis. 10. Hypokalemia, corrected. 11. Old foot injury and doing well. The patient is to follow with his family physician as soon as possible. All the above was explained to him in detail. He verbalized understanding and agreement. MARLA PUGH MD WMS/modl /[id number] d: 06/06/1739 t: 06/07/17 0748, DISCHARGE SUMMARY
[~2017-06-02 16:04] MED LIST changes: -FLONASE 50 MCG/16 GM NOSE; -LIPITOR80 MG PO; -MILK OF MA400 MG/5 M PO; -NORVASC10 MG PO
--- NOTE | 2017-06-02 16:10 | NUR ---
Pt admitted to [facility] from [facility]U following CVA. Pt up in room with FWW, 1 assist, slightly unsteady, jackelin. well. minimal upper ext. deficit noted. LLE difficulty moving r/t prev. ankle surgery, foot does not dorsiflex or plantar flex well. Pt has AFO to LLE. Pt has hx of oral cancer, partial tongue was removed, all teeth are missing, and has jaw reconstruction. PT on mechanical soft diet r/t no teeth. Pt able to take meds iwth water 1 at a time. Pt denied any pain. Pt cooperative with admission process. Large area of ecchymosis to left arm, ant/post rib area, and flank area. SL to rt AC.
[2017-06-02 18:08] LABS: BILIRUBIN URINE NEGATIVE (NEGATIVE); BLOOD URINE NEGATIVE /UL (NEGATIVE); COLOR URINE YELLOW (YELLOW); GLUCOSE URINE NEGATIVE (NEGATIVE); KETONE URINE 5 mg/dL (NEGATIVE); LEUKOCYTES URINE 25 /UL (NEGATIVE); NITRITE URINE NEGATIVE (NEGATIVE); PROTEIN URINE 15 mg/dL (NEGATIVE); SPEC GRAVITY URINE 1.015 (1.003-1.035); TURBIDITY URINE CLEAR (CLEAR); UROBILINOGEN URINE NORMAL (NORMAL)
[2017-06-02 18:17] LABS: RBC URINE 0-2 #/HPF (NEGATIVE)
[2017-06-02 18:19] LABS: AMORPHOUS URINE 1+ (NEGATIVE); BACTERIA URINE NEGATIVE (NEGATIVE); EPITHELIAL URINE 0-2 #/HPF (NEGATIVE); MUCUS URINE 2+ (NEGATIVE)
[2017-06-02 18:20] LABS: HYALINE CAST URINE 0-2 #/LPF (NEGATIVE)
--- NOTE | 2017-06-02 19:11 | NUR ---
Significant Event: Pt admitted at 1610 from NTU. Pt able to amb from w/c to chair with 1 assist, handheld at time of admit, but does use walker. Pt denied pain. Moderate strength to all ext. Pt reported numbness and tingling in hands nd feet is normal for him. Left facial droop is r/t jaw surgery not CVA, pt and also stated that his slurred speech at times is r/t jaw surgery, this is pt's normal baseline. SMall open hole in skin of left jaw and metal plate is visible. this has been there since surgery. Large areas of ecchymosis to left arm, flank, rib, abd area. Pt has no teeth so needs mechanical soft diet. Pt pleasant and cooperative with cares. IV SL to rt AC. Left ankle brace is from prev. ankle surgery not r/t CVA. Pt not able to dorsiflex or plantar flex this foot. UA obtained. Follow up: safety, activity, need walker for his room.
--- NOTE | 2017-06-03 03:20 | NUR ---
Significant Event: A/O x3. denies pain. had scheduled ultram at hs. up to bathroom with 1 assist. leans to left with standing. voided per urinal, yellow urine. wears brace to left leg, previous fusion done on left ankle. sl to rt forearm. wears O2 at 2l/nc. has n/t to upper and lower extremities, not related to this stroke. lung sounds with expiratory wheezes throughout. takes meds 1 pill at a time with water. Follow up: please measure for pranay doyle.
[2017-06-03 06:37] LABS: BASOPHIL % 0.5 %; EOSINOPHIL # 0.3 K/uL (0.0-0.5); EOSINOPHIL % 3.5 %; HEMATOCRIT 37.8 % (33.0-50.0); HEMOGLOBIN 12.7 g/dL (11.0-16.0); IMMATURE GRANULOCYTE # 0.1 K/uL (0.0-0.3); IMMATURE GRANULOCYTE % 0.8 %; MCH 30.2 pg (27.0-34.0); MCHC 33.6 gm/dL (32.0-36.5); MONOCYTE # 0.8 K/uL (0.0-1.0); MONOCYTE % 9.6 %; MPV 9.7 fl (9.4-12.4); NEUTROPHIL # (ANC) 6.5 K/uL (1.4-9.0); NEUTROPHIL % 74.6 %; NRBC % 0 /100WBC (0-0.00); PLATELET COUNT 187 K/uL (150-450); WBC 8.7 K/uL (4.0-11.0)
[2017-06-03 07:01] LABS: ALBUMIN 3.1 gm/dL (3.5-5.0); ANION GAP 7.5 (10.0-19.0); CALCIUM 8.2 mg/dL (8.5-10.5); CREATININE 0.7 mg/dL (0.6-1.3); POTASSIUM 3.5 mMol/L (3.7-5.1); TOTAL BILIRUBIN 0.9 mg/dL (0.0-1.5); TOTAL PROTEIN 5.7 g/dL (6.0-8.4)
--- NOTE | 2017-06-03 10:19 | NUR ---
D: Therapeutic Recreation Initial Assessment on the 06/03/17. I: Patient seen for 2 unit to begin initial evaluation. Pt has dx of CVA with hx of Ca. R: Patient's current living situation and status: condo Home entrance steps: 0 Living with: Spouses name: Yuli (10 yrs) # of children: 2 boys and 2 stepsons - none close Driving: yes, spouse does drive (car) Ambulating: mod I Equipment: LLE brace Hand Dominance: Right Manager Loan strength: L) side affect Eye sight: glasses Reading ability: reports no problem with paper Hearing: no problem Speech: slight slur due to Ca removal of part tough/jaw Cognition: alert Comprehension: fair Following directions: yes Initiating: yes Eye contact: good Affect: bright COMMUNITY INVOLVEMENT: yazidism weekly, coffee group at yaz[employer]ism, visit family/friends, car rides, travel LEISURE INTERESTS: jigsaw puzzles, watch TV, read (newspaper) word finds, past cards, sit on patio Patient is referred by medical staff for treatment and evaluation in the following areas: Community Skills, Functional Leisure Skills, Participation, Leisure Education/Behaviors, Family Education. Information obtained: Interview, Chart Review, Observation, other. BARRIERS TO LEISURE: Physical Patient determined to be: APPROPRIATE FOR THERAPEUTIC RECREATION ASSESSMENT. TREATMENT WILL INCLUDE: Community living skills training Functional leisure development Physical skills development Cognitive skills development Social skills development Leisure education Emotional/behavioral adaptation Family education Community resources/packet TARGET EQUIPMENT/INFORMATION: Parking Permit to assess need Community Resources Energy conservation in community setting Van/Service/Taxi Scrip Adapted Leisure Equipment Stress management/Relaxation techniques Functional car transfers Leisure Education Behaviors: Attitude, Awareness, Participation. Patient functional skills level and potential: Guarded, pt demonstrates fair mobility with concerns for endurance, coping an adjusting to current limitations. Patient oriented ot TR services on Rehab unit. Pt/family provided input into goals setting and plan of care. Pt's goal is to return and travel again. P: Target date set with personal goals established. Will continue with POC focusing on pt/family training and education. For additional information please see Nursing Data Base, PT, OT, CM, ST, initial assessments to [facility] and Interdisciplinary Assessments.
--- NOTE | 2017-06-03 16:31 | NUR ---
Significant Event: Pt up in room and tovar with walker, and 1 assist, pt jackelin. well. Pt has AFO on Left leg from prev. ankle surgery. Left ankle has minimal dorsi and plantar flexion. Pt weaned from 2L to RA holding sats at 92-95%. will need to continue to monitor while resting and with activity. Voiding well, no BM. MOM given at 1622 for constipation. New orders received this afternoon, pt is now daily standing weight, now dose of lasix, KCL given. Push I.S. Takes meds 1 at a time with water. Left facial droop and slurred speech is r/t prev. jaw surgery and partial tongue removal. Needs [facility] soft side, no teeth. Follow up: acitivity, safety, need daily wght in am. Continue to monitor O2 sat.
--- NOTE | 2017-06-04 02:23 | NUR ---
Significant Event:A/O. 1 assist with gaitbelt and walker. Needs AFO/Brace to left leg (r/t previous ankle fusion). VSS on room air, encourage incentive spirometry. Left arm and side ecchymotic in various hues of color. VSS on room air. BM this shift. Meds 1 at a time with water. Facial droop and garbled speech from previous history of jaw reconstruction and removal of portion of tongue. Daily weight. Denies pain. Continent, voids per urinal. Call light in reach. Bed alarm on. Follow up:Daily weight. Left leg brace.
--- NOTE | 2017-06-04 13:59 | NUR ---
D: TR progress note for 06/04/17. I: Pt seen for 2 units at 1317 for community integration skills building, functional transfers, and safety awareness. R: Pt seen for functional skills building working on mobility, safety, functional transfers and community skills in anticipation for discharge back into community with spouse. Pt's spouse present for session, transferred into their SUV. Pt transferred sit > stand from recliner CGA, pivoted to with walker CGA and transferred into CGA with good recall on hand placement. Pt transferred sit > stand from CGA, ambulated 5 feet to/from vehicle CGA without AD and transferred in/out of vehicle CGA with cues for hand placement. Pt was SBA for BLE management and positioning of self, tolerated ride with no C/o pain, discomfort or nausea but O2 levels taken throughout session ranging from 87%-93% but when in 80s if cues given for breathing technique easily recovered back to 90+. P: Will continue to see to address goals and plan of care.
--- NOTE | 2017-06-04 15:10 | NUR ---
Significant Event:Pt alert and orientated X 3, expresses needs well. Transfers with 1 assist walker/gait belt, walks in hallway. Wears left leg AFL on left leg. Encourage I.S. as recently off O2. Slurred speech, pt, on [facility] soft [facility]/ no teeth. Likes to take meds whole 1 @ a time. Ecchymosis to left arm,ant/post rib area and flank area. Pt has been pleasant and cooperative with plan of care. here @ intervals, good support. Follow up:daily standing wt. in am, monitor SAT/encourage I.S., hx of oral CA, with jaw reconstruction, partial tongue remova. YESENIA Hunt AC.
--- NOTE | 2017-06-05 04:24 | NUR ---
Significant Event:A/O. Transfer 1 assist with gaitbelt and walker. Brace to left leg when up. Daily standing weight w/o brace in the morning. VSS on room air, afebrile. Encourage Incentive Spirometry. History of oral cancer, part of toongue removed and jaw reconstructed. Opening in lower right side under jaw from reconstruction. Left ankle does not flex, r/t previous fusion. SL discontinued for leaking. Meds whole with water one at a time. Call light in reach. Bed alarm per protocol. Follow up:Mobility. Strengthening. VS.
--- NOTE | 2017-06-05 14:31 | NUR ---
Significant Event:Showered this AM. Participates in therapy. Takes meds without problems. Ambulates with 1 assist, gait belt and walker. L) ankle brace and AFO on when up. Tolerating PO diet and fluids. Voiding without problems. Follow up:
--- NOTE | 2017-06-06 03:38 | NUR ---
Significant Event: PATIENT IS ALERT AND ORIENTED X3. SLOW TO ANSWER WHICH IS NORMAL FOR PATIENT PRIOR TO CVA R/T PARTIAL TONGUE REMOVAL/JAW RECONSTRUCTION. SWALLOWS PILLS ONE AT A TIME. PARTIAL HARDWARE SHOWING THROUGH JAW. REPORTS HE TYPICALLY COVERS THIS AT NIGHT BUT IS CURRENTLY OPEN TO AIR. ALSO HAD LEFT ANKLE RECONSTRUCTION IN WHICH HE WEARS AN AFO BRACE WHEN UP. THIS CAUSES HIM TO LEAN LEFT. WHICH IS HIS BASELINE. UP X1 WITH WALKER. Follow up:
--- NOTE | 2017-06-06 12:14 | NUR ---
A - PT SCREENED D/T LOS. S/P ISCHEMIC STROKE. HX: ORAL CA W/ TONGUE/JAW RECONSTRUCTION. HT: 76" WT: 205# BMI: 24.8. LABS: K+ 3.6, ALB 3.1, PREALB 16. MEDS: VIT D, PREDNISONE, MV, BOWEL. DIET: MECH-SOFT. INTAKE: 75-100%. NEEDS: 8753-3134 KCAL (25-30 KCAL/KG), 93-112 G PRO (1-1.2 G/KG), 2800 ML FLUID (30 ML/KG) D - NO NUTRITION RELATED DIAGNOSIS IDENTIFIED AT THIS TIME. I - GOAL FOR INTAKE TO REMAIN 75-100% FOR DURATION OF STAY. M/E - WILL ASSIST NEEDED.
--- NOTE | 2017-06-06 13:06 | NUR ---
Significant Event: PATIENT UP 1 ASSIST HAND HOLD OR WALKER. ASSISTED HIM IN CARES TODAY. ALERT AND ORIENTED X3. COOPERATIVE WITH CARES. VITALS STABLE ON ROOM AIR. SLIGHTLY DIFFICULT TO UNDERSTAND DUE TO HIS PARTIAL TONGUE REMOVAL. HARDWARE VISIBLE THROUGH CHEEK, NO ISSUES. MECHANICAL SOFT DIET. PILLS ONE AT A TIME. DENIES PAIN. LEFT LEG AFO. CONTINENT OF BOWEL AND BLADDER. HOME TOMORROW. WILL NEED ERECTING ENGINEER PLACED BEFORE LEAVING. ALSO, PLEASE MAKE SURE GIVES PROPER NOTE REGARDING HOSPITAL STAY FOR PATIENT/PATIENT'S PER REQUEST DUE TO THEM MISSING A FLIGHT AND NEEDING A REFUND (NOTE ON FRONT OF CHART). Follow up:
[2017-06-06] MEDS ORDERED: MILK OF MA400 MG/5 M PO (18:07)
[2017-06-06] MEDS ORDERED: LIPITOR80 MG PO (18:08)
[2017-06-06] MEDS ORDERED: FLONASE 50 MCG/16 GM NOSE (18:08)
[2017-06-06] MEDS ORDERED: NORVASC10 MG PO (18:08)
--- NOTE | 2017-06-07 04:28 | NUR ---
Alert and oriented. Standby assistance when up, but does call for nurse appropriately. Has had partial tongue removal and jaw reconstruction done in the past, making it difficult to understand him at times. Please make sure is aware that pt is to have follow-up outpt PT/OT 2x a week for 4 weeks. They were under the impression that she would just be assisting with exercises at home upon discharge. Home today after cardiac monitoring is completed.
--- NOTE | 2017-06-07 14:43 | NUR ---
Discharge inst. reviewed with pt and . Both voiced understanding and denied any questions at time of discharge. Pt assessment unchanged from previous. Pt up in room to w/c. Pt tranported out via w/c by TECHNOLOGY AUDITOR. Pt and pt's both voiced appreciation for care received.
--- NOTE | 2017-06-08 10:52 | NUR ---
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 I: Input from: patient, family, Dr. 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 Admission Date to [facility]: 06/02/17 Admission Date to Hospital: 05/29/17 Prior level of functioning: patient was independent with adl's and household prior to stroke. Prior living situation: condo with basement. Financial resources/expectations: patient has Medicare and BC/BS Resources used: highrise toilet, shower chair, grab bars, handheld shower, shoehorn, FWW. Resources available: HHC, outpatient therapy, SNF, [facility], [facility], DME. Family support available: Understands nature of health condition: yes Recognizes impact of health condition on lifestyle: yes Vocational/Educational: retired [employer] Behavior/Emotional needs: cues for safety. Monitor for signs and symptoms of depression and anxiety. Legal concerns: none. Discharge goal: home with support. Assessment: Miguel is an 81 year old man from [place], [place] admitted after a stroke. He has great family support. Plan is for patient to d/c on 06/07/17. Will have outpatient therapy. No other needs identified. Orientation to the program and CM services completed with Miguel. Initial plan of care and estimated length of stay discussed, disclosure statement reviewed including patient assessment rights. P: Target date and individual goals established. Please see POC for details. For additional information please see Nursing Data Base, PT, OT, TR, ST, Initial assessments to [facility].
== END 2017-06-07 10:45 | disposition disaster alternative care site (69) | DRG 56 ==
LOC: GIRP 16:04
PROVIDERS: ADMIT Physical Medicine & Rehabilitation
DX: I69.354 Hemiplegia and hemiparesis following cerebral infarction affecting left non-dominant side (principal); J96.21 Acute and chronic respiratory failure with hypoxia; M06.9 Rheumatoid arthritis, unspecified; I10 Essential (primary) hypertension; Z79.82 Long term (current) use of aspirin; Z74.1 Need for assistance with personal care; R26.81 Unsteadiness on feet; I25.10 Atherosclerotic heart disease of native coronary artery without angina pectoris; E78.5 Hyperlipidemia, unspecified; N40.0 Benign prostatic hyperplasia without lower urinary tract symptoms; M81.0 Age-related osteoporosis without current pathological fracture; E87.6 Hypokalemia; J45.909 Unspecified asthma, uncomplicated; Z87.828 Personal history of other (healed) physical injury and trauma
CPT/HCPCS: J7512

== ENCOUNTER 2017-06-08 07:58 | Inpatient (IN) | payer MEDICARE, BC ==
[~2017-06-08] VITALS: Ht 193 cm; Wt 90.5 kg
--- NOTE | ~2017-06-08 | CON ---
PATIENT'S NAME: CESILIA URBINA [facility] AGE: 81 Y [address] ROOM: [id number] [place], [place] [address] LOCATION: GICU ADMIT DATE: 06/08/2017 Consultation DISCHARGE DATE: FAMILY PHYSICIAN: Roberto Verdugo MD ATTENDING PHYSICIAN: Luis Fernando MAYFIELD DATE OF CONSULTATION: 06/08/2017 REFERRING PHYSICIAN: CHIDI CERVANTES MD This is a patient of Dr. Cervantes and Dr. Mayfield. Dear colleagues: Thank you for asking me to see Mr. Urbina who is an 81-year-old male patient hospitalized with left-sided hemiplegia. The patient's history was given by his who has fairly good record of all his medical illnesses. His sons were also there to give some history as well. It appears as if he had in November of 2014, an infection of his foot requiring IV antibiotics 4 times a day and he was in [facility], at which time in November of 2014 had a TIA affecting the left side of his face with numbness and weakness of the left side of his arm. She is not sure whether he had a left leg weakness. This occurred when he was sitting in chair and lasted for about 5 to 7 minutes. He was brought to [facility] at that time. The next day, he had another 5 to 7 minutes' worth of the same symptoms. Since then, he has been doing well. On May 29 of this year, while sitting in the patio, developed around 10 a.m. acute CVA, and at that time, he received tPA and improved dramatically. He went home on Thursday and that evening he went to bed around 10 o'clock. Sometime during the night, he must have developed another CVA involving the same area, which unfortunately went undetected. Typically, he gets up 3 to 4 times to pass urine, but he did not get up at all and he had wetted his bed that night which is not usual for him. The next morning his found him and almost unable to move. He was admitted, and I am asked to see him in consultation to do transesophageal echocardiogram to look for cardiac sources of emboli. It appears as if he has never had an VT or angina or nitroglycerin use. There is no history of rheumatic fever, heart murmur, heart failure, dilated or enlarged heart or any diagnosed arrhythmias such as atrial fibrillation. After his last hospitalization, he was sent home with a monitor to see if he has any arrhythmias that would be responsible for his CVA. The patient has history of hypertension. Apparently, he is not a diabetic. His cholesterol is known to be elevated. He quit smoking 30 years ago and PATIENT'S NAME: CESILIA URBINA [facility] AGE: 81 Y [address] ROOM: [address] [address] LOCATION: [facility] ADMIT DATE: 06/08/2017 Consultation DISCHARGE DATE: FAMILY PHYSICIAN: Roberto Verdugo MD ATTENDING PHYSICIAN: Luis Fernando MAYFIELD there is significant family history of congestive heart failure in his father at the age of 40. He has not had any trouble with chest pains. He has been short of breath and has been in functional class 2 to 3. He has no paroxysmal nocturnal dyspnea. He has been orthopneic for the past 2 years. He has never been tested for sleep apnea. He had a syncopal spell 30 years ago and workup was negative at that time, and since then, he has not smoked. He denies any palpitations and he does have swelling in his right leg where he has had most of the infection and surgeries. Apparently, he has had rheumatoid arthritis from the age of 5, BPH, and bronchial asthma. MEDICATIONS: 1. Combivent inhaler. 2. Tamsulosin 0.4 mg at bedtime. 3. Tramadol 50 mg twice a day. 4. Arava 20 mg once a day. 5. Prednisone 5 mg daily. 6. Vitamin D3, 1000 units a day. 7. Aspirin 325 mg a day. 8. Multivitamin once a day. 9. Magnesium hydroxide 400 mg a day. 10. Amlodipine 10 mg a day. 11. Atorvastatin 80 mg a day. 12. Fluticasone nasal spray 1 puff b.i.d. ALLERGIES: NO KNOWN DRUG ALLERGIES. PAST MEDICAL HISTORY: 1. Multifocal right-sided ischemic cerebrovascular accident. 2. Rheumatoid arthritis as mentioned earlier. 3. Acute hypoxic respiratory failure. 4. BPH. 5. History of DJD. 6. 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 7. 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 SOCIAL HISTORY: The patient is . He denies abuse, there is no alcohol abuse at this time. His appetite and weight are stable. Sleep is fair. FAMILY HISTORY: PATIENT'S NAME: CESILIA URBINA [facility] AGE: 81 Y [address] ROOM: [id number] [place], [place] [address] LOCATION: [facility] ADMIT DATE: 06/08/2017 Consultation DISCHARGE DATE: FAMILY PHYSICIAN: Roberto Verdugo MD ATTENDING PHYSICIAN: Luis Fernando MAYFIELD Congestive heart failure in father. REVIEW OF SYSTEMS: A 12-point review of systems reveal, 1. Sinus problems. 2. Cataract surgery. 3. COPD. 4. Kidney stones. 5. BPH. 6. 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 PHYSICAL EXAMINATION: VITAL SIGNS: On examination, his blood pressure is 168/80; heart rate is in the 70s and 80s, regular; respirations 18; afebrile. GENERAL: He does respond to commands to some extent. He is fairly flaccid on his left side. HEENT: Normal. He does have a small sinus under the right angle of the mandible. First and second heart sounds are regular. There are no added sounds or murmurs. CHEST: Clear to auscultation. ABDOMEN: Soft. EXTREMITIES: Reveal right lower leg edema. CENTRAL NERVOUS SYSTEM: Revealed left hemiplegia. ASSESSMENT: An 81-year-old male patient with recurrent episodes of stroke. This seemed to affect right hemisphere repeatedly and is multifocal. Agree with doing KING for evaluation of the cardiac structures as well as the aorta to look for embolic strokes. Again, I appreciate this opportunity to participate in the care of Mr. Urbina. MD ISRAEL BROWN/ahsan /[id number] d: 06/08/17 2321 t: 06/10/17 1209, CONSULTATION REPORT
--- NOTE | ~2017-06-08 | CON ---
PATIENT'S NAME: CESILIA URBINA [facility] AGE: 81 Y [address] [id number] [address] LOCATION: GICU ADMIT DATE: 06/08/2017 Consultation DISCHARGE DATE: FAMILY PHYSICIAN: Roberto Verdugo MD ATTENDING PHYSICIAN: Luis Fernando PIZANO DATE OF CONSULTATION: 06/08/2017 REFERRING PHYSICIAN: CHIDI PATE MD NEUROLOGIC CONSULTATION TIME OF EVALUATION: The patient was seen on 06/08/2017 at 8:30 a.m. HISTORY OF PRESENT ILLNESS: I was called to the emergency room by the ER physician to evaluate Mr. Urbina, who is an 81-year-old male patient, who I had seen in neurological consultation back on 05/29/2017, and who had received tPA on that day in the morning after he presented here to our hospital with sudden onset of left facial droop, slurring of speech, and a dense left hemiparesis involving his left arm and his left leg. The patient post tPA made a nice recovery. In fact, he had full power in recovery of his left side, and his speech was significantly improved and left facial droop also improved. The patient actually went to rehabilitation in house and was sent home only yesterday afternoon and doing very well. Last night, his had a Crodino with him, and he was talking normally and acting well. Unfortunately, this morning, she woke up to find him having again left dense hemiparesis, left facial droop, and dramatically slurring his words. He was also less alert and looking towards his right side. The last time seen normal was 11:00 p.m. last night. The patient was taken for a CAT scan of his head to rule out any possibility of an evolving stroke or intracranial hemorrhage. This was negative. Unfortunately, due to two absolute contraindications, one being that the patient had a documented stroke less than three weeks ago as well as the fact that the absolute onset of the patient's symptoms is unknown during the evening and into the morning, and tPA could not be given due to these two absolute contraindications. The workup here will have to involve more closer look at the patient's carotid artery. By history, he does have a history of a tumor of his head and apparently back in 2001, the patient had a surgery to remove a mass as well as receiving radiation therapy. During our workup here in the hospital, a CT angiogram was performed to look at both the intracranial vessels including the saxman of Scott as well as the neck vessels for any evidence of stenosis. We found no evidence of clear stenosis of the carotid arteries and only some mild narrowing of the carotid was seen in the left neck carotid that would not be consistent with the patient having a stroke into the right MCA distribution. It should be noted that on MRI, there were scattered PATIENT'S NAME: CESILIA URBINA [facility] AGE: 81 Y [address] ROOM: [id number], [place] [address] LOCATION: [facility] ADMIT DATE: 06/08/2017 Consultation DISCHARGE DATE: FAMILY PHYSICIAN: Roberto Verdugo MD ATTENDING PHYSICIAN: Luis Fernando PIZANO areas of diffusion-weighted imaging prolongation that were seen in some subcortical regions of the brain including the right basal ganglia, right parietal region, and some extending back towards the posterior parietal bordering with the occipital lobe. It appeared that this was a stroke essentially involving the right carotid territory or more specifically, the right MCA territory. The fact that there was some diffusion-weighted imaging finding in the occipital lobe did not necessarily prove that this was an alternate blood vessel that was involved such as the right SERVICE CLEANER. This appeared to be possibly even a watershed area that was affected. Thus consideration for a post radiation effect in long-term may be associating here with this patient having a recurrent new stroke in the same vascular territory, and again because the patient cannot receive acute tPA treatment, we will maximize the patient's blood pressure for perfusion of his brain in the setting of an acute stroke. We have ordered normal saline to be opened at 200 mL an hour. Continue to give him IV fluids of at least 0.5 L to 1 L presently. PRIOR MEDICAL HISTORY: 1. History of hypertension. 2. History of coronary artery disease. 3. History of rheumatoid arthritis. 4. There was even a questionable history involving a TIA prior to the most recent stroke about 2 years ago. 5. He has a history of osteomyelitis of the left foot, post surgery. 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 SOCIAL HISTORY: He is for greater than 45 years. He does not smoke. He used to smoke, but stopped 20 years ago. He does not drink alcohol. FAMILY HISTORY: Nonsignificant here in this case. REVIEW OF SYSTEMS: The patient was last seen normal at 11:00 p.m. 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 He did very well and had received tPA treatment upon his arrival on the 29 May. He had an excellent recovery. He has two contraindications to receiving tPA, one being stroke less than three weeks as well as the time of onset of this new stroke is unclear, and cannot be determined to be safe in giving in the window. Two absolute contraindications were discussed with the patient's PATIENT'S NAME: CESILIA URBINA [facility] AGE: 81 Y [address] ROOM: [id number] [place] [id number] LOCATION: [facility] ADMIT DATE: 06/08/2017 Consultation DISCHARGE DATE: FAMILY PHYSICIAN: Roberto Verdugo MD ATTENDING PHYSICIAN: Luis Fernando PIZANO . The patient was unable to understand. He was mumbling his speech, had a right gaze preference. PHYSICAL EXAMINATION: GENERAL: The patient is appearing as to be poorly responsive. He did follow basic commands to try to lift up his left arm. He could move his right arm. VITAL SIGNS: Show a pulse of 78 with a regular rhythm. A wide P was seen consistent with P mitrale. The rhythm appeared to be normal sinus rhythm with occasional APCs. Blood pressure 156/82, and temperature is afebrile. NEUROLOGIC: Cranial nerves; there is more pronouncement of a left flattening of the nasolabial fold, but at baseline he has some surgery to his jaw that shows a partial droop on both sides. He is unable to follow commands to smile. Presently, he has a right gaze preference. He may have some neglect of his left side. He does not activate his left side as there is dense left hemiparesis seen in his left arm and left leg. He can move his right arm and right leg, but not activating it currently; withdraws to pain on the right side. Reflexes are unable to be performed in the patient due to poor comprehension, right now is unable to perform issues with issues of neglect and right and left discrimination. IMPRESSION: Jay is an 81-year-old male patient who about 10 days ago received tPA in the setting of left dense hemiparesis and slurring of speech with left facial droop. He has made a good recovery, but there was still evidence of a diffusion-weighted imaging positive into his right middle cerebral artery distribution. He has made an excellent recovery and was in rehabilitation during the course of this past few days and went home only yesterday. He was doing well until he was found this morning by his in bed with similar findings as his presentation 10 days ago. He has absolute contraindication to receiving tPA as mentioned above. We will support his permissive hypertension with a bolus of normal saline at 200 mL an hour and continue with normal saline at 200 mL an hour. Not aware of any cardiac issues and/or history of congestive heart failure, so would limit giving him fluids to maintain his blood pressure on the high end of normal. I would hold any blood pressure medications and allow permissive hypertension to at least 215/110 if possible. We can do an MRI again with an MRA of the neck and head. Prior CT angiogram did not reveal any significant stenosis into the right carotid artery, but this cannot necessarily give us some indication of plaque stabilization even in a non-stenosed blood vessel. A carotid artery study should be ordered again with view of the endothelial lining of the right carotid if possible. I will continue to follow along with the Hospitalist Service on the patient's status and close monitoring of his telemetry to rule out any possibility of atrial fibrillation. For now, post stroke we will change the aspirin to Plavix 75 mg daily. Continue the patient on the cholesterol-lowering medication of Lipitor 80 mg daily. PATIENT'S NAME: CESILIA URBINA [facility] AGE: 81 Y [address] ROOM: [id number] [place] [address] LOCATION: [facility] ADMIT DATE: 06/08/2017 Consultation DISCHARGE DATE: FAMILY PHYSICIAN: Roberto Verdugo MD ATTENDING PHYSICIAN: Luis Fernando PIZANO MD BLESSING LOPEZ/modl /[id number] d: 06/08/17 1402 t: 06/30/17 1549, CONSULTATION REPORT
--- NOTE | ~2017-06-08 | CON ---
PATIENT'S NAME: CESILIA URBINA [facility] AGE: 81 Y [address] ROOM: [place] [address] LOCATION: GICU ADMIT DATE: 06/08/2017 Consultation DISCHARGE DATE: 06/14/2017 FAMILY PHYSICIAN: Roberto Verdugo MD ATTENDING PHYSICIAN: Luis Fernando Mayfield DATE OF CONSULTATION: 06/11/2017 REFERRING PHYSICIAN: Aidan Cervantes MD LOCATION: ICU, room 6212. REFERRING PROVIDER: Oksana Bates MD CHIEF COMPLAINT: Palliative care referral for code status and goals of care conservation. HISTORY OF PRESENT ILLNESS: The patient is an 81-year-old male who was admitted with dense left hemiparesis, left facial droop, and slurred speech. The patient's reports that she had last seen him in his usual state of health around 10:30 or 10:45 the previous night, and she noticed, around 7:30 in the morning, that he had not gotten up out of bed yet. The patient has a history of a recent stroke. He was admitted here to [facility] on May 29. During that hospitalization, tPA was administered, and on discharge from inpatient rehab, he had full recovery. Due to the unknown time of onset and his recent previous stroke, the patient was deemed to not be a tPA candidate this time. The patient is currently in the intensive care unit and continues to have quite dense left-sided hemiparesis and slurred speech. He has a Dobbhoff tube for tube feedings. Given the severity of his stroke and recurrent strokes, Palliative Care has been consulted to discuss code status and ongoing goals of care conversation. PREVIOUS OPERATIONS: 1. Partial glossectomy and neck dissection with jaw reconstruction and lower palate resection. 2. Left ankle surgery x3. 3. Tonsillectomy. 4. Bilateral cataracts. 5. History of thoracentesis. 6. Colonoscopy. 7. Lumbar back surgery. PAST MEDICAL HISTORY: PATIENT'S NAME: CESILIA URBINA [facility] AGE: 81 Y [address] ROOM: [address] [address] LOCATION: GICU ADMIT DATE: 06/08/2017 Consultation DISCHARGE DATE: 06/14/2017 FAMILY PHYSICIAN: Roberto Verdugo MD ATTENDING PHYSICIAN: Luis Fernando Mayfield 1. History of TIA and a recent stroke. 2. Rheumatoid arthritis. 3. Hypertension. 4. Osteoarthritis. 5. History of osteomyelitis of his left foot. 6. 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 MEDICATIONS: Home medication list includes: 1. Norvasc 10 mg daily. 2. Aspirin 325 mg daily. 3. Lipitor 80 mg daily. 4. Vitamin D 1000 units p.o. daily. 5. Flonase one puff to nose twice daily. 6. Albuterol nebulizers as needed. 7. Arava 20 mg p.o. daily. 8. Milk of magnesia as needed. 9. Multivitamin one tablet daily. 10. Prednisone 5 mg daily. 11. Flomax 0.4 mg daily. 12. Ultram 50 mg twice daily. ALLERGIES: NO KNOWN ALLERGIES. SOCIAL HISTORY: He has a history of smoking. He quit 20 years ago. No history of alcohol use. He is . This is his second . They live in [place]. She has dementia. FAMILY HISTORY: Hypertension and heart disease. REVIEW OF SYSTEMS: GENERAL: No recent changes in weight or appetite. No fevers. HEENT: Denies a headache. Denies any changes in his vision. No sinus congestion. RESPIRATORY: Denies shortness of breath. CARDIOVASCULAR: No chest pain or pressure. No peripheral edema. GASTROINTESTINAL: No nausea, vomiting, diarrhea, or constipation. He has had some difficulties chewing and swallowing after the stroke. GENITOURINARY: Denies dysuria, urinary frequency or urgency. MUSCULOSKELETAL: Denies any joint swelling or joint pain. Denies back pain. Does tell me that he has had multiple surgeries on his left foot after a PATIENT'S NAME: CESILIA URBINA [facility] AGE: 81 Y [address] [place]: [id number] [address] LOCATION: [facility] ADMIT DATE: 06/08/2017 Consultation DISCHARGE DATE: 06/14/2017 FAMILY PHYSICIAN: Roberto Verdugo MD ATTENDING PHYSICIAN: Luis Fernando Mayfield football injury in high school. NEUROLOGICAL: Denies numbness or tingling. No seizures. INTEGUMENTARY: No rashes or open areas. HEMATOLOGICAL: No new bruising or bleeding. PSYCHIATRIC: Denies feeling overly depressed or anxious. Denies hallucinations. Denies insomnia. PHYSICAL EXAMINATION: VITAL SIGNS: Blood pressure 114/63, heart rate 77, temperature 97.6, respirations 27, and O2 saturation 95% on 3 L. GENERAL: A drowsy, though easily arousable and oriented elderly white male who is lying in the intensive care unit, does not appear to be in any acute distress. His speech can be difficult to understand at times. HEENT: Normocephalic, atraumatic. He does have signs of previous facial surgery and neck dissection. Pupils are equal and reactive to light. Sclerae are anicteric. Tongue and mucous membranes are dry. Does have a facial droop. CARDIOVASCULAR: Heart tones regular rate and rhythm. I am not able to note any murmur. RESPIRATORY: Respirations are regular and nonlabored. Lung sounds are clear to auscultation Bilaterally. I am not able to hear any rales, rhonchi, or wheezes. GASTROINTESTINAL: Abdomen is soft and nontender. Bowel sounds are present. GENITOURINARY: Olm[place] catheter intact with adequate amounts of yellow urine. MUSCULOSKELETAL: No significant joint deformities. He does have some mild swelling and arthritic changes to his left ankle and foot. No clubbing or cyanosis. Does have slight pedal edema, left greater than right. SKIN: Warm and dry. No unusual lesions or rashes. NEUROLOGICAL: Does have dense left-sided hemiparesis with slurred speech. He is unable to move left side to command. Does withdraw to pain on the left side. He is weak on the right. IMPRESSION AND PLAN: 1. Dysphagia. He has Dobbhoff tube feeding for now and continues to work with speech therapy. 2. Weakness. Continues to work with PT and OT. The patient had previously been a patient on our inpatient rehab unit prior to going home from his last stroke and hopes to be able to return there for further therapy. 3. Code status. The patient has recently changed to a do not resuscitate/do not intubate, but okay for medications for resuscitation. I met with the patient and his who has some dementia. Introduced the role of palliative care for additional support and goals of care while here at the hospital, and I reviewed with the patient and his what they had visited about during this hospital stay in regard to the severity of his stroke and the fact that he was not a candidate for tPA at this time. Did confirm with PATIENT'S NAME: CESILIA URBINA [facility] AGE: 81 Y [address] ROOM: [id number], [place] [address] LOCATION: [facility] ADMIT DATE: 06/08/2017 Consultation DISCHARGE DATE: 06/14/2017 FAMILY PHYSICIAN: Roberto Verdugo MD ATTENDING PHYSICIAN: Luis Fernando Mayfield the above-noted code status. The patient does not have an advance directive or a living will in place. The patient does talk about working with therapy and hoping to get better so that he can return home. States that he hopes he does not have any further setbacks. The patient seems to have a fairly decent understanding to his situation and how it is different from his previous stroke and treatment that followed. We will plan to follow up with the patient's 2 sons in the next couple of days as we see how he progresses with therapy for ongoing support as well as goals of care conversation. Most likely, at some point, we will need to address PEG tube and even possibly skilled placement. The patient and denied any concerns. No spiritual needs. Total visit time was 40 minutes, greater than 50% of this time was spent providing education and counseling. Thank you for allowing me to assist this patient and family. BROOKE EVANS, CLAUDIO FOR JOSELO ORNELAS MD DLS/modl /[id number] CC: Oksana Bates MD d: 06/12/17 1930 t: 07/07/17 1336, CONSULTATION REPORT
--- NOTE | ~2017-06-08 | ECHO ---
Transesophageal Echocardiography Report ([facility]) Demographics Patient Name CESILIA URBINA Date of Study 06/08/2017 Patient Number [id number] Visit Number [id number] Date of 1935 Room Number O1700OJ Accession Number [id number] Gender Male Age 81 year(s) Referring Tran Gould Football Scout Tsaia Urbina [facility], Physician TRAN GOULD T Willi Valentin Valorie, [facility] Physician Interpreting Debora Vidal Transportation Maintenance Specialist Physician MD Supervising Ordering Physician Debora Vidal MD/SOO LUCIO Nurse Stress Vp Customer Development Conclusions Summary The left ventricle appears to have some hypertrophy with normal EF. There is no LA or LA appendage thrombus or spontaneous contrast. Informed consent was obtained, bubble study was done, bubbles crossed to the left atrium suggesting a PFO.No other cardiac sources of emboli. Asending aortia is at the upper limits of normal. The aortic root appears mildly dilated. The maximum diameter measures 3.94 cm. Procedure Type of Study [facility] procedure Procedure Date Date: 06/08/2017 Start: 04:52 PM Study Location: Inpatient Portable Technical Quality: Adequate visualization Indications:CVA. Additional Indications:stroke Appropriate Use Criteria: 9 Patient Status: Routine Contrast Medium: Bubble Study. Amount - 20 ml Rhythm: Within normal limits HR: 93 bpm BP: 185/93 mmHg M-Mode/2D Measurements AO Root Dimension: 3.94 cm Findings Left Ventricle The left ventricle appears to have some hypertrophy. Left Atrium There is no LA or LA appendage thrombus or spontaneous contrast. Informed consent was obtained, bubble study was done, bubbles crossed to the left atrium suggesting a PFO or ASD. Pericardial Effusion No evidence of pericardial effusion. Miscellaneous The aortic root appears mildly dilated. The maximum diameter measures 3.94 cm. Pleural Effusion No evidence of pleural effusion. Contractility Score LV regional wall motion:(0-Non visualized 1-Normal 2-Hypokinesis 3-Akinesis 4-Dyskinesis 5-Aneurysm) Signature dtt: Marcy Cazares dtd: 06/08/17 1652 Physician Self Edit
--- NOTE | ~2017-06-08 | HP ---
PATIENT'S NAME: CESILIA URBINA [facility] AGE: 81 Y [address] ROOM: [id number] [place] [address] LOCATION: [facility] ADMIT DATE: 06/08/2017 History & Physical DISCHARGE DATE: FAMILY PHYSICIAN: Roberto Verdugo MD ATTENDING PHYSICIAN: Luis Fernando PIZANO DATE OF SERVICE: CHIEF COMPLAINT: CVA. HISTORY OF PRESENT ILLNESS: The patient is an 81-year-old gentleman with past medical history of TIA, hypertension, and recent history of stroke with left-sided deficit, who presents here from home with left sided weakness and facial droop associated with dysarthria. The patient was last seen to be normal around 10:30 p.m. The patient went to sleep with his and when tried to wake the patient up, the noticed around 8 a.m. that the patient has facial droop and left-sided weakness. The patient was brought into the emergency department for evaluation. The patient had a CT of the head, that shows no acute hemorrhage or ischemic stroke. The patient was seen by Dr. Cervantes, neurologist, and was deemed to be not a tPA candidate. Of note, the patient was recently admitted to our hospital on May 29 for the same type of presentation and was given tPA. The patient was admitted and monitored in the hospital. The patient's symptoms improved. The patient was transferred to [facility] and was actually discharged yesterday with a heart monitor for suspicion of atrial fibrillation. During his stay, the patient had workup including echo, CT head and neck that was unremarkable. The patient currently denies chest pain, shortness of breath, fever, cough, chills, abdominal pain, nausea, and vomiting. PAST MEDICAL HISTORY: Hypertension, TIA, recent history of stroke. Also has history of rheumatoid arthritis, osteoarthritis. History of osteomyelitis of left foot, status post surgery. FAMILY HISTORY: Hypertension and some history of heart disease. SOCIAL HISTORY: Used to be a smoker, quit smoking 20 years ago, and denies history of drinking. MEDICATIONS: PATIENT'S NAME: CESILIA URBINA [facility] AGE: 81 Y [address] ROOM: [id number] [place] [address] LOCATION: [facility] ADMIT DATE: 06/08/2017 History & Physical DISCHARGE DATE: FAMILY PHYSICIAN: Roberto Verdugo MD ATTENDING PHYSICIAN: Luis Fernando PIZANO Currently being reconciled. REVIEW OF SYSTEMS: All systems have been reviewed are negative except for what I mentioned in HPI. PHYSICAL EXAMINATION: VITAL SIGNS: Temperature 96.6, blood pressure 169/90, heart rate of 73, respiratory rate of 18, O2 saturation of 92 on room air. GENERAL APPEARANCE: The patient is alert and awake, lying on the bed. HEAD: Normocephalic, atraumatic. EYES: Right preference gaze. NOSE: No nasal discharge. EARS: No ear discharge. CHEST: Clear to auscultation. HEART: Regular rate and rhythm. No murmurs, rubs, or gallops. ABDOMEN: Soft, nontender, and nondistended. SKIN: Warm to touch. MUSCULOSKELETAL: No obvious joint effusion noted. BELT CLEANER: The patient alert and awake, left upper extremity and left lower extremity strength 0/5. Right preference gaze. Moderate nasolabial fold flattening. LABORATORY DATA: Troponin negative. White blood cell count 0.9, hemoglobin 13.8, platelet of 273. Glucose of 110, BUN of 17, creatinine 0.8, sodium of 145, potassium of 3.9, chloride of 105, CO2 of 30. PT of 1. EKG shows normal sinus rhythm with frequent ventricular premature complex. ASSESSMENT AND PLAN: 1. Cerebrovascular accident. NIH score of 12. TPN, not candidate due to time window. Discussed case with Dr. Cervantes to acquire KING for possible embolic phenomena. To switch aspirin to Plavix. The patient has a heart monitor, we will consult Cardiology for heart monitor evaluation. To continue Lipitor, PT, OT, and serial neurological examinations. He is to continue Lipitor 80 mg. Swallow eval. The patient has had recent CTA head and neck. We will hold CT head and neck for now. We will discuss if there is need for another repeat CTA head and neck with Neurology. 2. Hypertension. We will keep permissive hypertension due to stroke to keep blood pressure for 24 hours high, only treat if systolic blood pressure is greater than 220, labetalol p.r.n. for that. 3. Rheumatoid arthritis/osteoarthritis, use Tylenol for pain control. Greater than 70 minutes spent on the patient care. The patient was discussed PATIENT'S NAME: CESILIA URBINA [facility] AGE: 81 Y [address] ROOM: [address] [address] LOCATION: [facility] ADMIT DATE: 06/08/2017 History & Physical DISCHARGE DATE: FAMILY PHYSICIAN: Roberto Verdugo MD ATTENDING PHYSICIAN: Luis Fernando PIZANO with Dr. Cervantes and Dr. Cazares for possible KING and also heart monitor evaluation. We will admit the patient to ICU. Also discussed with the patient and about code status. Admission code status, full code. MD LISA STEWART/ahsan /[id number] D: T: HISTORY & PHYSICAL
--- NOTE | ~2017-06-08 | ER ---
PATIENT'S NAME: CESILIA URBINA [facility] AGE: 81 Y [address] ROOM: [id number] [place] [address] LOCATION: [facility] ADMIT DATE: 06/08/2017 ER/Outpatient Report DISCHARGE DATE: FAMILY PHYSICIAN: Roberto Verdugo MD ATTENDING PHYSICIAN: Luis Fernando MAYFIELD TIME OF ARRIVAL: 0758 hours. TIME OF EVALUATION: 0758 hours. CHIEF COMPLAINT: Stroke alert. HISTORY OF PRESENT ILLNESS: The patient is an 81-year-old male who presents to the emergency department today with a chief complaint of stroke alert. The patient was recently discharged from the facility yesterday from inpatient rehab after undergoing an ischemic stroke. The patient and his report that he was doing well. He was able to move everything, but last night at 11 p.m. was the last time that he was able to do all these functions. He woke up this morning. He had the same symptoms that he had before. He was unable to move his left side. He had slurred speech with left-sided facial droop. He denies any headache. No fevers or chills. No nausea or vomiting. No diarrhea or constipation. The patient denies any pain at this time, 0/10 in severity. The patient does have a history of prior head and neck cancer with removal of the left mandible and part of the left tongue as well, so he does have some baseline facial deformity. The patient did call EMS. EMS arrived. The patient was a stroke alert from the field. PAST MEDICAL HISTORY: Rheumatoid arthritis; head and neck cancer in 2012; osteomyelitis of left foot; TIA x2; stroke on 05/29/2017, with tPA administered; COPD; and coronary artery disease as well. PAST SURGICAL HISTORY: Head and neck surgery with partial removal of the tongue and the mandible, back surgery, left ankle surgery, tonsillectomy, bilateral cataract repair, thoracentesis, colonoscopy, and lower plate resection. SOCIAL HISTORY: The patient is and lives at home in [place]. 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 Denies any alcohol or illicit drug use. PATIENT'S NAME: CESILIA URBINA [facility] AGE: 81 Y [address] ROOM: [id number] [place] [address] LOCATION: [facility] ADMIT DATE: 06/08/2017 ER/Outpatient Report DISCHARGE DATE: FAMILY PHYSICIAN: Roberto Verdugo MD ATTENDING PHYSICIAN: Luis Fernando MAYFIELD ALLERGIES: NO KNOWN DRUG ALLERGIES. MEDICATIONS: 1. Norvasc 10 mg. 2. Aspirin 325 mg. 3. Lipitor 80 mg. 4. Vitamin D. 5. Flonase. 6. Arava. 7. Theragran. 8. Deltasone. 9. Flomax. Ultram. 1. Albuterol. 2. Milk of magnesia. REVIEW OF SYSTEMS: All systems are reviewed by myself and are negative with the exception of those discussed in the HPI and Past Medical History. PHYSICAL EXAMINATION: VITAL SIGNS: Weight 92.0 kg. Blood pressure 169/90, pulse 73, respiratory rate 18, temperature 96.0, and oxygen saturation 88% on room air. GENERAL: The patient is an 81-year-old male who appears stated age. He is well developed. He is alert. HEENT: Head is normocephalic and atraumatic. Pupils are equal, round, and reactive to light and accommodating. Oropharynx is clear. NECK: Supple. No nuchal rigidity. CARDIOVASCULAR: Regular rate and rhythm. No murmurs, rubs, or gallops. LUNGS: Clear to auscultation bilaterally. No wheezes, rales, or rhonchi. ABDOMEN: Soft, nontender, and nondistended. No rebound, rigidity, or guarding. MUSCULOSKELETAL: The patient is flaccid. Left upper extremity and left lower extremity are flaccid with 0/5 muscle strength, right 5/5 muscle strength. NEUROLOGICAL: GCS 15. He is alert. He is oriented to person, place, time, President, and situation. He does have boot liner maker strength differences in the left, 2/4 reflexes. The patient does have some left facial asymmetry with some facial droop and flattening. SKIN: Warm and dry. LABORATORY AND X-RAY DATA: EKG was obtained, is interpreted by myself at 0819 hours, does appear to have sinus rhythm with PVCs at a rate of 75, normal axis, and normal interval. No ST elevation, ST depression, or T-wave inversions. Head CT: I did discuss PATIENT'S NAME: CESILIA URBINA [facility] AGE: 81 Y [address] ROOM: [id number] [place], [place] [address] LOCATION: [facility] ADMIT DATE: 06/08/2017 ER/Outpatient Report DISCHARGE DATE: FAMILY PHYSICIAN: Roberto Verdugo MD ATTENDING PHYSICIAN: Luis Fernando MAYFIELD results with the radiologist. It shows no acute hemorrhage. There is acute ischemia noted on prior 05/31. There were small vessel ischemic changes. CBC is unremarkable. Coags are unremarkable. CMP is unremarkable. LFTs are unremarkable. Troponin is normal. Accu-Chek is 111. IMPRESSION: 1. Cerebrovascular accident with left-sided facial and left-sided deficits. 2. Initial visit. EMERGENCY DEPARTMENT COURSE: The patient was brought back to the examination room. Seen and evaluated immediately upon arrival by myself. The patient was a stroke alert from the field. The patient did proceed to CT imaging after a brief neurological evaluation. He did undergo CTA previously as well as MRI. Those old records were reviewed while the patient was in CT. Dr. Cervantes with Neurology was contacted. He has seen and evaluated the patient here in the emergency department. We have had a discussion about potential tPA with this patient. The onset of symptomatology is unknown as the patient was last seen approximately 9 to 10 hours prior. The patient just had ischemic stroke and received tPA approximately 10 days ago. Certainly, the risks do outweigh the benefits at this time for tPA administration. The patient is given IV fluids normal saline at 200 mL/hour per Dr. Cervantes's recommendation. I have discussed the case with Dr. Mayfield who has seen and evaluated the patient down here in the emergency department. DISPOSITION: The patient is admitted under the care of Dr. Mayfield in the Hospitalist Service in conjunction with Dr. Cervantes in stable condition. DO PRAVEEN ESCOBAR/marcyl /[id number] d: 06/08/17 1202 t: 06/08/17 1459, OUTPATIENT REPORT
--- NOTE | ~2017-06-08 | CON ---
PATIENT'S NAME: CESILIA URBINA [facility] AGE: 81 Y [address] ROOM: [id number] [place], [place] [address] LOCATION: GICU ADMIT DATE: 06/08/2017 Consultation DISCHARGE DATE: 06/14/2017 FAMILY PHYSICIAN: Roberto Verdugo MD ATTENDING PHYSICIAN: Luis Fernando Mayfield DATE OF CONSULTATION: 06/12/2017 REFERRING PHYSICIAN: Aidan Cervantes MD REFERRING PROVIDER: Oksana Bates MD REASON FOR CONSULTATION: Melenic stool, decrease in hemoglobin. HISTORY OF PRESENT ILLNESS: This is a pleasant 81-year-old gentleman who unfortunately was admitted on 06/08/2017 with acute CVA. The patient is being followed per Nephrology. He had a previous admission for CVA resulting with tPA administered. He did well, recovered well in our inpatient rehab, and moved home. The patient ultimately had recurring CVA and was admitted to [facility], though unfortunately, was unable to receive any treatment. The patient has been recovering and has reported melenic stool per the nursing staff. He also had noted hemoglobin drifts from admission of 13.8 to a recheck today of 8.6, hematocrit of 25.9. His BUN has also increased to 50. He previously was on aspirin as well as Plavix in lieu of the patient's recent CVA, this now has been placed on hold. The patient was seen and examined. He does respond, though is slow to verbal. Denies any noticeable pain with nonverbal cues, but on assessment, hospital staff does report having melenic stool. Hematest was also completed that was positive x1 stool currently, 2 pending. The patient also has been on Prevacid per Erum. The patient has been receiving tube feedings for nutritional supplement post stroke. PAST MEDICAL HISTORY: All information was gathered from the hospital records secondary to the patient's complete inability to answer questions. 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 SOCIAL HISTORY: The patient is . No known history of alcohol abuse or illicit drug use. PATIENT'S NAME: CESILIA URBINA [facility] AGE: 81 Y [address] ROOM: [id number] [place], [place] [address] LOCATION: GICU ADMIT DATE: 06/08/2017 Consultation DISCHARGE DATE: 06/14/2017 FAMILY PHYSICIAN: Roberto Verdugo MD ATTENDING PHYSICIAN: Luis Fernando Mayfield FAMILY HISTORY: The patient's father had congestive heart failure. ALLERGIES: NO KNOWN MEDICATION ALLERGIES. CURRENT MEDICATIONS: Please refer to the medication administration record. REVIEW OF SYSTEMS: All-point review of systems was completed, all were negative except for those identified in the History of Present Illness. PHYSICAL EXAMINATION: GENERAL: An 81-year-old gentleman, lying in bed, who appears to be in no acute distress. VITAL SIGNS: Temperature 98.2, pulse of 94, respirations of 18, blood pressure 117/70, and oxygen saturation is 92% on 2 L. SKIN: [facility], warm, and dry. No jaundice. HEENT: Head is normocephalic and atraumatic. Pupils are equal, round, and reactive to light. Sclerae are clear, nonicteric. Oral mucosa is pink. Dobbhoff placed to the right naris that is intact in place. NECK: Soft and supple. CARDIOVASCULAR: Regular. Normal S1 and S2. RESPIRATORY: Respirations even and unlabored. Lungs clear to auscultation. ABDOMEN: Soft, round, and nontender. Bowel sounds positive. MUSCULOSKELETAL: The patient is lying in bed with residual weakness noted. NEUROLOGICAL: The patient does answer questions semi-appropriately when asked questions, though is slow to respond and does appear to take more physical stimuli to arouse. LABORATORY AND DIAGNOSTIC DATA: Laboratory obtained on admission showed a hemoglobin of 13.8 with a recheck today of 8.6, hematocrit of 25.9, platelets of 243, and white blood cell count this morning was 16.5. Chemistry panel includes a glucose of 149, BUN of 50, creatinine of 0.7, sodium 147, potassium 3.5, chloride 111, and CO2 of 32. Albumin of 3.3. Phosphorus of 2.4. ASSESSMENT AND PLAN: This is an 81-year-old gentleman who was recently admitted with recurring cerebrovascular accident. We were asked to see in consultation for acute decrease in his hemoglobin as well as melenic stool reported per staff. The patient also had Hematest that was completed, and it was positive for blood. At this time, we will hold the patient's p.o. Prevacid and place him back on PATIENT'S NAME: CESILIA URBINA [facility] AGE: 81 Y [address] ROOM: [id number] [place], [place] [address] LOCATION: GICU ADMIT DATE: 06/08/2017 Consultation DISCHARGE DATE: 06/14/2017 FAMILY PHYSICIAN: Roberto Verdugo MD ATTENDING PHYSICIAN: Luis Fernando Mayfield PPI therapy IV. We will plan for an upper endoscopy in the morning for further evaluation. The patient's Plavix and aspirin are currently on hold at this time. Further recommendations to be given status post upper endoscopy. Thank you for this consult. BARBARA MEADE APRN FOR AN RAMOS MD MMF/modl /[id number] d: 06/12/17 1906 t: 06/18/17 0806, CONSULTATION REPORT
--- NOTE | ~2017-06-08 | ENPV ---
Carotid Duplex Study Demographics Patient Name CESILIA URBINA Date of Study 06/10/2017 Patient Number [id number] Gender Male Date of 1935 Age 81 Visit Number [id number] Height 76 Accession Number [id number] Weight 210 Referring Kartik Romero MD Physician JERICA WINSTON Physician Physician Ordering Physician Helen Etienne Engineer [employer] Machine Operator Librado Hammer, SARAHT Conclusions Summary Bilateral <50% stenosis of the ICA Procedure Type of Study: Cerebral:Carotid, Carotid Doppler Bilateral. Indications for Study:Stroke. Appropriate Use Criteria:9 Patient Status:Routine. Study Location:Imaging Center. Technical Quality:Adequate visualization. Velocities are measured in cm/s ; Diameters are measured in cm Carotid Right Measurements Carotid Left Measurements + +--------+--------+ + + + +--------+ --------+ + + !Location !PSV !EDV !Angle !%Stenosis ! !Location !PSV ! EDV !Angle !%Stenosis ! + +--------+--------+ + + + +--------+ --------+ + + !Prox CCA !61 !7 !10 ! ! !Prox CCA !65 ! 16 !60 ! ! + +--------+--------+ + + + +--------+ --------+ + + !Dist CCA !54 !17 !60 ! ! !Dist CCA !36 ! 9 !60 ! ! + +--------+--------+ + + + +--------+ --------+ + + !Prox ICA !27 !10 !48 !1-39% ! !Prox ICA !55 ! 21 !60 !1-39% ! + +--------+--------+ + + + +--------+ --------+ + + !Dist ICA !45 !17 !60 ! ! !Dist ICA !54 ! 19 !42 ! ! + +--------+--------+ + + + +--------+ --------+ + + !Prox ECA !43 ! !54 ! ! !Prox ECA !28 ! !54 ! ! + +--------+--------+ + + + +--------+ --------+ + + !Vertebral !40 !14 !60 ! ! !Vertebral !39 ! ! ! ! + +--------+--------+ + + + +--------+ --------+ + + !Subclavian !43 ! ! ! ! !Subclavian !83 ! ! ! ! + +--------+--------+ + + + +--------+ --------+ + + - There is antegrade vertebral flow noted on the right side. - There is antegrade verte bral flow noted on the left side. - Add'l Measurements:ICAPSV/CCAPSV 0.73.ICAEDV/CCAEDV 2.34. - Add'l Measurements:ICAPS V/CCAPSV 0.85.ICAEDV/CCAEDV 1.28. Signature dtt: GARY ROSS dtd: 06/10/17 [facility] Physician Self Edit
--- NOTE | ~2017-06-08 | DS ---
PATIENT'S NAME: CESILIA URBINA [facility] AGE: 81 Y [address] ROOM: [place] [address] LOCATION: GICU ADMIT DATE: 06/08/2017 Discharge Summary DISCHARGE DATE: 06/14/2017 FAMILY PHYSICIAN: Roberto Verdugo MD ATTENDING PHYSICIAN: Luis Fernando Mayfield SUMMARY ADMITTING DIAGNOSIS: CVA. DISCHARGE DIAGNOSES: 1. CVA. 2. Hemorrhagic shock. SECONDARY DIAGNOSES: 1. Gastrointestinal bleed. 2. Duodenal ulcer. 3. Left-sided weakness. 4. Dysphagia. 5. Hypertension. 6. hyperlipidemia. PROCEDURES: 1. MRI of brain. 2. KING. 3. EGD. 4. Carotid Doppler. 5. MRA of brain. CONSULTATIONS: Neurology and GI. HISTORY OF PRESENT ILLNESS: The patient is an 81-year-old gentleman with past medical history of TIA, hypertension, recent history of stroke with left-sided deficit, who presents here with left-sided weakness, facial droop, and dysarthria. The patient was last seen to be normal around 10:30 p.m. day before presentation. The patient went to sleep with his , and when tried to wake him the patient up, noticed that the patient had facial droop and left-sided weakness around 8:00 a.m. The patient was brought into the emergency department for evaluation. The patient had a CT of head that shows no acute hemorrhagic or ischemic stroke. The patient was seen by Dr. Cervantes, neurologist, and was deemed to be not a tPA candidate. Of note, the patient was recently admitted to our hospital on May 29 for the same type of presentation and was given tPA. The patient was admitted and monitored in the hospital. The patient's symptoms improved. The patient was transferred to [facility] and was actually discharged yesterday with heart monitor for suspicion of PATIENT'S NAME: [facility]GE: 81 Y [address] ROOM: [place] [address] LOCATION: [facility] ADMIT DATE: 06/08/2017 Discharge Summary DISCHARGE DATE: 06/14/2017 FAMILY PHYSICIAN: Roberto Verdugo MD ATTENDING PHYSICIAN: Luis Fernando Mayfield atrial fibrillation. During his stay, the patient had workup including echo, CT head and neck, that was unremarkable. HOSPITAL COURSE: The patient was admitted and was treated for secondary prevention. Started on aspirin and Plavix and statin. The patient was seen by Speech Therapy, and the patient was noted to fail swallow evaluation. He was placed on NG tube. During his stay, the patient had a KING done, which was unremarkable except there was a PFO. Also had MRI that shows MCA distribution stroke on the right side, acute. Change from the recent stroke. The patient was also seen by neurologist during his stay. However, the patient was noted to have some tarry stool, then drop in the hemoglobin from close from 12-13 on admission to 9. Aspirin and Plavix were held. The patient continued to drop his hemoglobin. He was seen by GI consultation. The patient had an EGD done on 06/13/2017. EGD shows duodenal bulb ulcer 2 cm with clot. High risk for rebleeding. Intervention was not done due to the size of the ulcer. The patient was brought back to his room, and H and H were being serially taken. The patient was noted to continue to have a drop. The patient was started on packed red blood cell transfusion. During this event, the patient was noted to be tachypneic. Chest x-ray was unremarkable, and also was noted to have some labile blood pressure with tachycardia. The patient was also started on IV fluids. Also noted to have altered mental status. It was discussed with Dr. Jeffers, GI physician, to transfer the patient to a place where they can do IR if IR was not available on 06/13/2017. Dr. Baca with interventional radiology was called, was currently at [place] and recommended transfer the patient to [place] for IR intervention for embolization. Discussed case with family member and family member did not want any aggressive treatment as the patient has repeatedly voiced during his stay to his family member that he does not want any aggressive treatment and want to have to be a DNR/DNI, also comfort care. The patient was started on packed red blood cell and IV fluid. However, after long discussion with the family due to his residual deficits, which was severe left-sided weakness both upper extremity and lower extremity, and also difficulty talk and dysphagia, family including his of 10 years and 2 of his boys decided to have no aggressive treatment, which included intubation as the patient was having difficulty breathing and was tachypneic with altered mental status as the patient had to be stabilized for the transfer, however, decided to be comfort care. Comfort care orders were placed, and the patient on 06/14/2017 at 2:08 a.m. Family was at bedside during his demise. CONDITION: The patient . DISPOSITION: The patient . DISCHARGE MEDICATIONS: The patient . No discharge medication. PATIENT'S NAME: CESILIA URBINA [facility] AGE: 81 Y [address] ROOM: [address] [address] LOCATION: GICU ADMIT DATE: 06/08/2017 Discharge Summary DISCHARGE DATE: 06/14/2017 FAMILY PHYSICIAN: Roberto Verdugo MD ATTENDING PHYSICIAN: Luis Fernando Mayfield No pending studies. No followup. The patient diseased. Less than 30 minutes were spent on discharge planning and summary. MD LISA STEWART/ahsan /[id number] d: 06/15/17 0138 t: 06/19/17 1303, DISCHARGE SUMMARY
--- NOTE | ~2017-06-08 | CON ---
PATIENT'S NAME: CESILIA URBINA [facility] AGE: 81 Y [address] ROOM: [id number] [place] [address] LOCATION: GICU ADMIT DATE: 06/08/2017 Consultation DISCHARGE DATE: FAMILY PHYSICIAN: Roberto Verdugo MD ATTENDING PHYSICIAN: Luis Fernando MAYFIELD DATE OF CONSULTATION: 06/08/2017 REFERRING PHYSICIAN: CHIDI PATE MD CONSULTATION NOTE REQUESTING PHYSICIAN: This is a consult for Dr. Luis Fernando Mayfield. HISTORY OF PRESENT ILLNESS: This 81-year-old who was admitted on 06/08/2017 with marked weakness of the left side, left facial droop, left visual field cut, was on unit from 06/02/2017 until 06/07/2017 with left hemiparesis, hemiplegia secondary to ischemic stroke. Did well, was discharged to home, and was admitted the next day. He was able to ambulate when he was in rehabilitation unit last day 200 feet x1 with front-wheeled walker. PAST MEDICAL HISTORY: 1. History of recent ischemic stroke with left hemiplegia and did well. 2. History of coronary artery disease. 3. Hypertension. 4. Dyslipidemia. 5. Benign prostatic hypertrophy. 6. Allergic rhinitis. 7. Osteoporosis. 8. Hypokalemia, corrected. 9. Old left foot injury with a double upright on the ankle joint and doing well. He is now alert, oriented. Marked left-sided weakness with facial droop. He has history also of tongue surgery on the left side with resection which has a little bit affected his speech and has some slurring before, however, that has been magnified now more. Tongue and soft palate are moving, however, slightly lower on the left side. He is at risk of falling and aspiration at the present time, secondary to slowness of the left side of tongue. VITAL SIGNS: Vitals are as follow; blood pressure 136/81, temperature 97.4, pulse 77, and respiratory rate 16. He is 6 feet 4 inches tall and weighs 95.3 PATIENT'S NAME: CESILIA URBINA [facility] AGE: 81 Y [address] ROOM: [id number] [place] [address] LOCATION: GICU ADMIT DATE: 06/08/2017 Consultation DISCHARGE DATE: FAMILY PHYSICIAN: Roberto Verdugo MD ATTENDING PHYSICIAN: Luis Fernando MAYFIELD kg. CURRENT MEDICATIONS: He is on the following medications: 1. Labetalol. 2. Tylenol. 3. NaCl 0.9%. 4. Protonix. 5. Plavix. 6. Lipitor. ASSESSMENT AND PLAN: 1. We will put on PT, OT, and speech. We might do a modified barium swallow if necessary, however, first we will do a swallowing evaluation before we let him to eat for safe swallowing. 2. We will brace as necessary and also we will put on e-stimulation for specific muscles, especially left upper and lower extremity. 3. We will have a sling for the left upper extremity, shoulder, and we will continue on PT, OT, and speech for the time being. I plan to take him to rehabilitation when he is stable for intensive rehabilitation of about 3 or 4 weeks aiming to discharge to home at [facility]. All the above was explained to him. He verbalized understanding. Thank you for this referral. MARLA PRADO MD WMS/modl /[id number] d: 06/08/17 2145 t: 06/09/17 1129, CONSULTATION REPORT
[2017-06-08 08:23] LABS: INR - (THERAPEUTIC) 1.02 (0.92-1.07); PROTIME 10.7 SECONDS (9.8-11.4); PTT 24 SECONDS (25-32)
[2017-06-08 08:30] LABS: BASOPHIL # 0.1 K/uL (0.0-0.2); BASOPHIL % 0.9 %; EOSINOPHIL # 0.4 K/uL (0.0-0.5); EOSINOPHIL % 4.8 %; HEMATOCRIT 40.6 % (33.0-50.0); HEMOGLOBIN 13.8 g/dL (11.0-16.0); IMMATURE GRANULOCYTE # 0.2 K/uL (0.0-0.3); IMMATURE GRANULOCYTE % 2.5 %; LYMPHOCYTE # 1.6 K/uL (0.8-4.0); LYMPHOCYTE % 19.8 %; MCH 30.3 pg (27.0-34.0); MCV 89.2 fl (83.0-98.0); MONOCYTE # 0.8 K/uL (0.0-1.0); MONOCYTE % 10.5 %; MPV 9.5 fl (9.4-12.4); NEUTROPHIL # (ANC) 4.9 K/uL (1.4-9.0); NEUTROPHIL % 61.5 %; NRBC % 0 /100WBC (0-0.00); PLATELET COUNT 273 K/uL (150-450); RBC 4.55 M/uL (3.50-5.50); WBC 7.9 K/uL (4.0-11.0)
[2017-06-08 08:34] LABS: ALBUMIN 3.5 gm/dL (3.5-5.0); CALCIUM 9.1 mg/dL (8.5-10.5); CREATININE 0.8 mg/dL (0.6-1.3); TOTAL BILIRUBIN 0.8 mg/dL (0.0-1.5); TOTAL PROTEIN 6.4 g/dL (6.0-8.4)
[2017-06-08 08:37] LABS: ANION GAP 9.9 (10.0-19.0); POTASSIUM 3.9 mMol/L (3.7-5.1)
--- NOTE | 2017-06-08 11:13 | NUR ---
Pt is 81 y/o male admit for stroke for hospitalist. Pt alert and oriented x3. Poor historian occasionally. Denies allergies. Hx CVA recently,weakness, hx oral cancer,difficulty swallowing,chewing-no teeth,htn,edema,asthma,COPD, frequency/urgency,RA,joint stiffness. PT has been living with at home. She noticed this morning he had increased weakness and couldn't get out of bed when he needed to use the bathroom. He reports his left side wouldn't work.
--- NOTE | 2017-06-08 14:26 | NUR ---
CONSULT RECEIVED PER ROUTINE STROKE ORDERS. IF APPROPRIATE, DIET EDUCATION WILL BE COMPLETED PRIOR TO DISCHARGE.
--- NOTE | 2017-06-08 16:41 | NUR ---
SIGNIFICANT EVENT: PATIENT ARRIVED TO ICU AT 1031. ALERT, OPENS EYES TO VOICE AND SPONT. PUPILS EQUAL AND REACTIVE. L) SIDED FACIAL DROOPING EVIDENT. SPEECH IS MUMMBLED, SLOW, AND HARD TO UNDERSTAND AT TIMES. PATIENT IS ORIENTED TO PERSON, PLACE, AND TIMES. PATIENT DENIES NUMBNESS, TINGLING, OR PAIN. DENIES ANY ABNORMAL SENSATIONS ON L) SIDE. MRI OF BRAIN COMPLETED THIS SHIFT. PATIENT MOVES BILAT UPPER AND LOWER EXTREMITIES ON R) SIDE SPONT AND TO COMMANDS, WEAKNESS NOTED. PATIENT ONLY WITHDRAWS TO PAIN ON L) UPPER AND L) LOWER EXTREMITIES. STOKE SCALE 12. PATIENT HAS BEEN IN SINUS RHYTHM, HR 70S. PULSES PALPABLE THROUGHOUT. EDEMA PRESENT. AFEBRILE. PATIENT HAS BEEN ON 1 L NASAL CANNULA, SATS MID 90S. BOWEL SOUNDS PRESENT, NO BM. VARGAS INSERTED, GOOD URINE OUTPUT. NO NEW SKIN ISSUES. REPOSITIONED EVERY 2 HOURS. 1410 PATIENT DOWN FOR KING. PIV INFUSING NS AT 200ML/HR FOLLOW UP: CONT. TO MONITOR
--- NOTE | 2017-06-09 05:14 | NUR ---
Significant Event: The patient is Alert and oriented x3. Denied numbness and tingling. Moves the right side spontaneously, Left side withdrawls to pain. Up with Full lift. Q2H turns. VSS. On 1L of oxygen per NC. Olmstead draining yellow urine. PIV to the right hand infusing NS at 100ml/hr. NPO. Accu checks Q6H. Pupils are equal and reactive. Took over cares at 0359. Follow up:
--- NOTE | 2017-06-09 12:53 | NUR ---
Introduced self and role of care management to patient and . They live in [place]. He was just released from our Inpatient Rehab last Thursday after a short stay post CVA. His states that he was doing great on Thursday. The had been to [place] to pharmacy picking tech his new scripts. He had no complaints all day Thursday. She states they went to bed around 1040 and she got up at 0230 and relaized he had not been up during the night. She went back to bed and at 0720 she tried to get him up and noticed he could not speak or move. We did discuss him returning to [facility] when ready. She agrees that he needs to go to [facility] before going home. I spoke with Catarina HAYES on [facility] and she thought she may have a bed available at the end of the week. Will continue to follow.
--- NOTE | 2017-06-09 16:00 | NUR ---
Patients asked that I E-mail a letter for the airlines stating patient is hospitalized to her son so he can get vouchers for a later flight. I sent a secured E-mail to [email or web address] with the completed letters. I gave patients the original letters.
--- NOTE | 2017-06-09 16:34 | NUR ---
Significant Event: Alternating LOC and orientation through the day. At best has been alert and oriented with intelligible speech. At worst he has been drowsy with unintelligible mumbling. Left extremities withdraw slightly to pain and right extremities are purposeful with moderate strength. Up to chair with full lift. Pt's at bedside most of the day. Follow up: continue
[2017-06-10 05:11] LABS: ALBUMIN 3.3 gm/dL (3.5-5.0); ANION GAP 11.8 (10.0-19.0); CALCIUM 8.6 mg/dL (8.5-10.5); CREATININE 0.7 mg/dL (0.6-1.3); MAGNESIUM 2.2 mg/dL (1.8-2.6); PHOSPHORUS 2.4 mg/dL (2.5-4.9); POTASSIUM 3.8 mMol/L (3.7-5.1)
--- NOTE | 2017-06-10 05:24 | NUR ---
Significant Event: PT WITH SLIGHT IMPROVEMENT IN SPONTANEOUS MOVEMENT OF L) SIDE EXTREMITIES. STILL DOES NOT FOLLOW COMMANDS WITH L) SIDE. FOLLOWS COMMANDS ON R) SIDE WELL WITH GOOD STRENGTH. SLEEPING MOST OF SHIFT. AFEBRILE. REMAINS ON 1LNC FOR THIS RN. TF STARTED AND RESIDUAL INCREASED TO 750 ML AFTER 2 HOURS; DR. RICKETTS NOTIFIED AND ORDER OBTAINED TO HOLD TF UNTIL KUB OFFICIALLY READ BY RADIOLOGY THIS AM TO RULE OUT SMALL BOWEL OBSTRUCTION. LOOSE/LIQUID BM X2 THIS SHIFT. BOWEL SOUNDS HYPOACTIVE IN UPPER QUADRANTS, RARE IN LOWER QUADRANTS. UOP ADEQUATE. NO CHANGES IN SKIN ASSESSMENT. Follow up: NUTRITION CONSULT TODAY, RESUME TF ONCE KUB READ IF NO SMALL BOWEL OBSTRUCTION. CHELSEA MIN RN
--- NOTE | 2017-06-10 09:58 | NUR ---
A-CONSULT RECEIVED FOR TF RECOMMENDATIONS DOBHOFF PLACED YESTERDAY AND TF STARTED; TF CURRENTLY ON HOLD D/T 750 ML RESIDUAL. WAITING FOR RESULTS FOR KUB BEFORE RESTARTING TF; CHECKING FOR SBO. HYPOACTIVE BS; (+)BM; LIQUID/LOOSE S/P STROKE; L)SIDED WEAKNESS AND FACIAL DROOP. HT: 76 IN. CBW: 92.7 KG LABS: NA 144, K+ 3.8, GLU 123, BUN 38, GENERAL PEDIATRICIAN 0.7, ALB 3.3, PREALB 14.0 MEDS: TRANDATE, PROTONIX, LIPITOR DIET RX: NPO; 20 ML/HR JEVITY 1.5 STARTED-CURRENTLY ON HOLD EST NUTR NEEDS: 3380-1584 KCALS (25-30 KCALS/KG) 92-110 GM PROTEIN (1.0-1.2 GM GM/KG) 1 ML/FLUID KCAL D-AT NUTRITION RISK W/INADEQUATE ORAL INTAKE R/T DIFF. SWALLOWING AEB DOBHOFF PLACEMENT, NEED FOR ENTERAL NUTRITION. I-RECOMMEND JEVITY 1.5 WITH A GOAL RATE OF 70 ML/HR. THIS WILL PROVIDE 2520 KCALS, 100 GM PROTEIN, AND 1277 ML FREE WATER. RECOMMEND 150 ML WATER FLUSH 6 TIMES DAILY. M/E-GOAL: TF TO MEET PT'S NUTRIENT NEEDS 1)F/U TF AND POC IN 2-3 DAYS 2)ASSIST NEEDED
--- NOTE | 2017-06-10 17:23 | NUR ---
Significant Event: Patient is drowsy, awakens to voice, follows commands. Very weak on left side, withdraws LLE and LUE, moves right side spontaneously. Confused at times, recognized , sons. SR, irregular, HRs 80s-90s. Edema to LLE, 2+. Afibrile. Lungs sounds are clear, occasionally slight course in uppers, weak cough, hard to clear secreations. Bowel sounds hypoactive, TF restarted at 1200, increasing 10ml Q2H until goal of 70ml/hr. 150ml water flushes six times daily. Max residual of 55ml. 2 large BM. Olmstead intact with dark yellow, no sediment UOP. Patient is NPO per speech. Patient code status changed today, pallative consult. Follow up: continue to monitor.
--- NOTE | 2017-06-11 04:34 | NUR ---
Significant Event: PT CONTINUES TO BE DROWSY THROUGHOUT SHIFT. RESPONDS TO VOICE, FOLLOWS COMMANDS, CONVERSATIONAL. DIFFICULT TO UNDERSTAND AT TIMES. RARE SPONTANEOUS MOVEMENT NOTED TO L) EXTREMITIES. UNABLE TO FOLLOW COMMANDS ON L) SIDE. REMAINS IN SR THIS SHIFT; SBP 110S-150S. AFEBRILE. REMAINS ON 2LNC, COARSE THROUGHOUT. WEAK COUGH. ORAL CARES PROVIDED Q4H AND PRN. BM X3 FOR THIS RN; STOOL APPEARS LIQUID AROUND LARGE IMPACTED PIECES; DARK GREEN. UOP ADEQUATE (820 ML THIS SHIFT). PIV CONVERTED TO SL AFTER 500 ML LR INFUSED. TF INCREASED TO GOAL OF 70 ML/HR THIS SHIFT; RESIDUALS INCREASING-ORDER OBTAINED FOR REGLAN. Follow up: CONTINUE WITH TUBE FEEDS. POSSIBLY UP TO CHAIR TODAY. CHELSEA MIN RN
--- NOTE | 2017-06-12 04:21 | NUR ---
Significant Event: DROWSY BUT AROUSABLE. ANSWERS ORIENTATION QUESTIONS APPROPRIATELY. MUFFLED, SLOW SPEECH. NIHSS 14. NO PURPOSEFUL MOVEMENT ON LEFT SIDE, LUE AND LLE WITHDRAW TO PAIN. WEAK MOVEMENT ON RIGHT SIDE. LEFT FACIAL DROOP AND VISUAL FIELD DEFICIT. FOOT DROP BOOT TO LEFT. VSS. 2L NC. DOBHOFF RUNNING AT 70ML/HR AND 150ML FLUSHES 6X/DAY. NO RESIDUALS. LUNGS CLEAR AND DIM. VARGAS 900 OUT. NO BM. COCCYX RED AND BLANCHABLE. TURN Q2H. RIGHT HAND PIV SL'D. Q6H ACCUCHECKS. FULL LIFT Follow up:
[2017-06-12 06:11] LABS: BASOPHIL % 0.2 %; EOSINOPHIL # 0.2 K/uL (0.0-0.5); EOSINOPHIL % 1.4 %; HEMOGLOBIN 9.8 g/dL (11.0-16.0); IMMATURE GRANULOCYTE # 0.2 K/uL (0.0-0.3); IMMATURE GRANULOCYTE % 0.9 %; LYMPHOCYTE % 5.8 %; MCH 31.3 pg (27.0-34.0); MCHC 33.4 gm/dL (32.0-36.5); MCV 93.6 fl (83.0-98.0); MONOCYTE # 0.9 K/uL (0.0-1.0); MONOCYTE % 5.5 %; MPV 9.8 fl (9.4-12.4); NEUTROPHIL # (ANC) 14.2 K/uL (1.4-9.0); NEUTROPHIL % 86.2 %; NRBC % 0 /100WBC (0-0.00); PLATELET COUNT 243 K/uL (150-450); RBC 3.13 M/uL (3.50-5.50); RDW-CV 13.8 % (11.9-14.6); WBC 16.5 K/uL (4.0-11.0)
[2017-06-12 06:12] LABS: HEMATOCRIT 29.3 % (33.0-50.0)
[2017-06-12 06:24] LABS: ANION GAP 7.5 (10.0-19.0); CALCIUM 8.3 mg/dL (8.5-10.5); CREATININE 0.7 mg/dL (0.6-1.3); POTASSIUM 3.5 mMol/L (3.7-5.1)
[2017-06-12 12:37] LABS: HEMATOCRIT 25.9 % (33.0-50.0); HEMOGLOBIN 8.6 g/dL (11.0-16.0)
--- NOTE | 2017-06-12 13:04 | NUR ---
A - NUTRITION F/U. NA+ 147, K+ 3.5, GLU 149, BUN/PANTRY CHEF 50/0.7, ALB 3.3, WBC 16.5. PT W/ 1+ EDEMA TO ARMS AND 1-2+ EDEMA TO BLE. TF JEVITY 1.5 AT 70 ML/HR = 2520 KCALS, 100 GM PROTEIN, 1277 ML FREE H20. FLUSHES 150 ML Q 4 HRS. D - AT RISK W/ DIFFICULTY SWALLOWING R/T POST-CVA COMPLICATIONS AEB NEED FOR EN. I - GOAL: CONT TO MEET 100% OF NEEDS VIA EN. M/E - CONSIDER INCREASING FLUSHES TO 200 ML EVERY 4 HRS D/T HYPERNATREMIA AND ELEVATED BUN. WILL F/U IN 3-4 DAYS.
--- NOTE | 2017-06-12 17:34 | NUR ---
Significant Event: Patient opens eyes to voice. Speech very mumbled, very very hard to understand. Very drowsy this shift. No movement noted to L) side but does withdraw to pain. Spontaneous movement to R) side. Pupils 2mm, brisk. NIHSS= 15. VSS, on 2L O2. Lung sounds slightly coarse throughout. Needs good oral cares. Olmstead needs DC'd. Dobhoff to R) nare feeding tube feeds at 70 mL/hr. H20 flushes 200 mL q 4 hours. Still need hemetest x2. Open spot noted to R) jaw, open to air. Butt reddened. Bruise to L) flank. Scattered bruising noted throughout. IV to R) hand, saline locked. Follow up: EGD tomorrow. Accucheks q 6 hours. Full lift.
--- NOTE | 2017-06-13 02:44 | NUR ---
Significant Event: Mostly drowsy but easily arousable. Disoriented to time. NIHSS 15. No movement to upper and lower left extremity. Has been NPO since midnight for EGD planned for today. Remains on IV fluids and campbell catheter removed per order. Full lift for transfers and foot drop boot on left. VSS. will return to bedside in the morning. Follow up:
[2017-06-13 05:20] LABS: BASOPHIL # 0.1 K/uL (0.0-0.2); BASOPHIL % 0.3 %; EOSINOPHIL # 0.1 K/uL (0.0-0.5); EOSINOPHIL % 0.9 %; HEMATOCRIT 22.6 % (33.0-50.0); IMMATURE GRANULOCYTE # 0.4 K/uL (0.0-0.3); IMMATURE GRANULOCYTE % 2.5 %; LYMPHOCYTE # 1.2 K/uL (0.8-4.0); MCH 30.5 pg (27.0-34.0); MCHC 32.3 gm/dL (32.0-36.5); MCV 94.6 fl (83.0-98.0); MONOCYTE % 6.9 %; MPV 10.4 fl (9.4-12.4); NEUTROPHIL # (ANC) 12.2 K/uL (1.4-9.0); NEUTROPHIL % 81.4 %; NRBC % 0.1 /100WBC (0-0.00); PLATELET COUNT 247 K/uL (150-450); RBC 2.39 M/uL (3.50-5.50)
[2017-06-13 05:22] LABS: HEMOGLOBIN 7.3 g/dL (11.0-16.0)
[2017-06-13 05:37] LABS: ALBUMIN 2.3 gm/dL (3.5-5.0); CALCIUM 8.3 mg/dL (8.5-10.5); CREATININE 0.8 mg/dL (0.6-1.3); PHOSPHORUS 2.8 mg/dL (2.5-4.9)
[2017-06-13 05:43] LABS: ANION GAP 8.3 (10.0-19.0); POTASSIUM 4.3 mMol/L (3.7-5.1)
[2017-06-13 13:29] LABS: HEMATOCRIT 18.7 % (33.0-50.0); HEMOGLOBIN 6.1 g/dL (11.0-16.0)
--- NOTE | 2017-06-13 17:18 | NUR ---
Significant Event: UPON ARRIVAL THIS AM, PATIENT ALERT, BUT DROWSY...ABLE TO ANSWER ORIENTATION QUESTIONS. FOLLOWED COMMANDS. LEFT SIDE HAD WITHDRAW ONLY. RT SIDE MOVED TO COMMAND AND SPONTANEOUSLY. PUPILS 2MM, BRISK. EDEMA TO EXTREMITIES. LUNGS COARSE TO CLEAR AND DIM. PATIENT WENT FOR AN EGD THIS AM AT 0930 AND CAME BACK AT 1140. PATIENT WAS VERY DROWSY AFTER EGD, BUT ANSWERED MOST OF MY QUESTIONS. HIS RR WAS AROUND 24 ON 3 LITERS OF O2. BP AND HR GOOD. HE WAS ON A PROTONIX DRIP AND HIS DOBHOFF WAS OUT IT GOT COILED DURING EGD. WE WERE THEN KEEPING HIM NPO AND GOING TO MONITOR. HRB THIS AM WAS 7.3, THEN WERE ORDERED Q 4HRS. AFTER EGD IT WAS FOUND HE HAD SEVERAL ULCERS, AND AN INTACT CLOT, THEN A LARGE ULCER. HGB AT [address] PIZANO HERE TO SEE PATIENT AND ORDERED BLOODTO BE GIVEN AND PATIENT WAS PLACED ON BIPAP HIS RESP STATUS WAS WORSE. WAS PRESENT THIS WHOLE TIME. NEW IV'S STARTED. NORMAL SALINE AND BLOOD STARTED. MORE FAMILY HAD ARRIVED AND AFTER FUTHER TALKING WITH DOCTOR THE AND SONS AGREED TO GO MORE TO COMFORT CARES. PATIENT DID OPEN EYES VERY SLIGHTLY AT THIS TIME WHEN SONS CAME BUT DID NOT OPEN EYES AGAIN. AT THIS TIME HE IS DROWSY, REPONDS TO PAIN, MOVES RT SIDE SPONT BUT DOES NOT FOLLOW ANY COMMANDS. HE IS IN ROOM AIR, AND COMFORT CARES. WE WERE GOING TO PLACE A VARGAS BUT PER FAMILY AND DR'S ORDERS THIS DID NOT TAKE PLACE. MORPHINE GIVEN AT 1630 FOR AIR HUNGER Follow up: COMFORT CARES.
--- NOTE | 2017-06-14 05:25 | NUR ---
PATIENT ON COMFORT CARES PER REQUEST BY FAMILY. GIVEN MORPHINE QHR PRN FOR COMFORT. REPOSITIONED AND ORAL CARES DONE Q2HR. PATIENT AT 0208. IN ROOM WITH PATIENT. PATIENT WAS TAKEN DOWN TO [facility] BY SECURITY AND RN AT 0320.
== END 2017-06-14 03:20 | disposition expired | DRG 64 ==
LOC: GMED 07:58 → GICU 09:06
PROVIDERS: Emergency Medicine; Internal Medicine; Internal Medicine Gastroenterology; ADMIT Internal Medicine
PROC: B24BZZ4 Ultrasonography of Heart with Aorta, Transesophageal (ICD-10-PCS; principal; 2017-06-08)
PROC: 0DH67UZ Insertion of Feeding Device into Stomach, Via Natural or Artificial Opening (ICD-10-PCS; 2017-06-09)
PROC: 0DB98ZX Excision of Duodenum, Via Natural or Artificial Opening Endoscopic, Diagnostic (ICD-10-PCS; 2017-06-13)
PROC: 30233N1 Transfusion of Nonautologous Red Blood Cells into Peripheral Vein, Percutaneous Approach (ICD-10-PCS; 2017-06-13)
DX: I63.10 Cerebral infarction due to embolism of unspecified precerebral artery (principal); K26.4 Chronic or unspecified duodenal ulcer with hemorrhage; R57.1 Hypovolemic shock; G93.41 Metabolic encephalopathy; G93.1 Anoxic brain damage, not elsewhere classified; E87.0 Hyperosmolality and hypernatremia; Q21.1 Atrial septal defect; Z51.5 Encounter for palliative care; D62 Acute posthemorrhagic anemia; I69.954 Hemiplegia and hemiparesis following unspecified cerebrovascular disease affecting left non-dominant side; R13.10 Dysphagia, unspecified; R29.810 Facial weakness; Z66 Do not resuscitate; I10 Essential (primary) hypertension; M06.9 Rheumatoid arthritis, unspecified; E78.5 Hyperlipidemia, unspecified; R06.82 Tachypnea, not elsewhere classified; R00.0 Tachycardia, unspecified; R47.1 Dysarthria and anarthria; M19.90 Unspecified osteoarthritis, unspecified site; Z87.891 Personal history of nicotine dependence; J45.909 Unspecified asthma, uncomplicated; M81.0 Age-related osteoporosis without current pathological fracture; Z85.810 Personal history of malignant neoplasm of tongue; N40.0 Benign prostatic hyperplasia without lower urinary tract symptoms; D72.829 Elevated white blood cell count, unspecified
CPT/HCPCS: C9113; J2270; J7030; J7040; J7050; J7060; J7120; J7512; P9016

== ENCOUNTER → 2017-06-08 | Outpatient (CLI) | payer MEDICARE, BC ==
[~2017-06-08] MED LIST changes: +FLONASE 50 MCG/16 GM NOSE; +LIPITOR80 MG PO; +MILK OF MA400 MG/5 M PO; +NORVASC10 MG PO
== END | disposition disaster alternative care site (69) ==
LOC: GAMB 07:43
DX: I63.9 Cerebral infarction, unspecified (principal); R47.81 Slurred speech; R53.1 Weakness; M19.90 Unspecified osteoarthritis, unspecified site; Z85.830 Personal history of malignant neoplasm of bone; Z79.52 Long term (current) use of systemic steroids; Z79.899 Other long term (current) drug therapy
CPT/HCPCS: A0425; A0427